=== PATIENT | female | born 1975 | race Caucasian/White ===

== ENCOUNTER 2017-02-03 11:52 | Emergency (ER) | payer OTHER ==
[~2017-02-03] VITALS: Ht 157.5 cm; Wt 55.8 kg
[~2017-02-03 11:52] MED LIST: GABA300C1 PO; HUM SUBQ; HYDR-4446 PO; LANTUS SUBQ; [UNRECOGNIZED DRUG - CODE] PO
[2017-02-03 11:56] VITALS: BP 103/63
[2017-02-03] MEDS ORDERED: ONDANSETRON 4 MG/2 ML VIAL IVP ONE (12:00)
[2017-02-03] MEDS ORDERED: NACL 0.9% 1,000 ML IV SCH ×3 (12:00→14:55)
[2017-02-03] MEDS ORDERED: FAMOTIDINE 20 MG/2 ML VIAL IVP ONE (12:00)
--- NOTE | 2017-02-03 12:00 | NUR ---
Patient ambulated to bed 4. RN evaluating patient at bedside.
--- NOTE | 2017-02-03 12:02 | NUR ---
41F BIB FAMILY C/O MID-STERNAL CHEST PAIN, ACHING, NON-RADIATING, 8/10 X 3 DAYS; PT STATES HAS SOB, RR EVEN/UNLABORED, BL LUNG SOUNDS CLEAR AT THIS TIME; PT O2 SAT 100 % ON ROOM AIR AT THIS TIME. PT A&OX4, SKIN IS WARM/DRY AT THIS TIME; PT C/O VOMITING, BUT DENIES DIARRHEA AT THIS TIME; STATES HAS HAD 4 EPISODES OF VOMITING TODAY; ABDOMEN SOFT, NON-TENDER, ACTIVE BOWEL SOUNDS X 4 QUADRANTS; PT RESTING IN BED W/ HOB ELEVATED AND IN LOWEST POSITION; POSITIONED FOR COMFORT; ER MD MADE AWARE OF STATUS. WILL CONTINUE TO MONITOR.
[2017-02-03] MEDS ORDERED: HYDROmorphone 1 MG/ML AMP IVP ONE (12:05)
--- NOTE | 2017-02-03 12:07 | NUR ---
XRAY AT BEDSIDE.
[2017-02-03 12:34] LABS: BASOPHILS # (AUTO) 0.1 K/uL (0.00-0.22); BASOPHILS % (AUTO) 0.7 % (0.0-2.0); EOSINOPHILS # (AUTO) 0.2 K/uL (0-0.4); EOSINOPHILS % (AUTO) 1.5 % (0.0-4.0); HEMATOCRIT 46.8 % (36-48); HEMOGLOBIN 15.1 g/dL (12.0-16.0); LYMPHOCYTES # (AUTO) 1.3 K/uL (2.5-16.5); LYMPHOCYTES % (AUTO) 9.7 % (20.5-51.1); MEAN CORPUSCULAR HEMOGLOBIN 30 pg (27-31); MEAN CORPUSCULAR HGB CONC 32 g/dL (33-37); MEAN CORPUSCULAR VOLUME 92 fL (80-94); MONOCYTES # (AUTO) 0.6 K/uL (0.8-1.0); MONOCYTES % (AUTO) 4.1 % (1.7-9.3); NEUTROPHILS # (AUTO) 11.5 K/uL (1.8-7.7); PLATELET COUNT (AUTO) 390 K/uL (140-450); RED BLOOD CELL COUNT(AUTO) 5.11 MIL/uL (4.20-5.40); RED CELL DISTRIBUTION WIDTH 14.2 % (11.6-13.7); WHITE BLOOD COUNT (AUTO) 13.7 K/uL (4.8-10.8)
[2017-02-03 12:47] LABS: APPEARANCE,URINE SL CLOUDY (CLEAR); BILIRUBIN,URINE 1+ (NEGATIVE); BLOOD, URINE 2+ (NEGATIVE); COLOR,URINE YELLOW (YELLOW); LEUKOCYTE ESTERASE ,URINE NEGATIVE (NEGATIVE); NITRITE, URINE NEGATIVE (NEGATIVE); PH,URINE 5.5 (5.0-9.0); PROTEIN,URINE 1+ (NEGATIVE); UGLUCOSE 3+ (NEGATIVE); UROBILINOGEN,URINE 0.2 EU/dL (0.2 - 1)
[2017-02-03 12:54] LABS: INR 1.1 (0.8-1.2); PARTIAL THROMBOPLASTIN TIME 27.7 secs (22-35.6); PROTHROMBIN TIME 10.4 secs (10.8-13.4)
[2017-02-03 12:54] LABS: AMPHETAMINE, URINE NEG. ng/ml (NEG <=1000); BARBITURATE, URINE NEG. ng/ml (NEG <=200); BENZODIAZEPINE, URINE NEG. ng/mL (NEG <=200); CANNABINOID, URINE NEG. ng/mL (NEG <=50); COCAINE, URINE NEG. ng/mL (NEG <=300); OPIATE, URINE NEG. ng/mL (NEG <=2000); PHENCYCLIDINE SCREEN,URINE NEG. ng/mL (NEG <=25)
[2017-02-03 12:55] LABS: ALBUMIN 3.7 g/dL (3.4-5.0); ANION GAP 31.2 (8-16); CALCIUM 8.9 mg/dL (8.5-10.1); CARBON DIOXIDE 9.3 mmol/L (21-32); CREATININE 1.4 mg/dL (0.6-1.3); POTASSIUM 4.5 mmol/L (3.5-5.1); TOTAL BILIRUBIN 0.5 mg/dL (0.0-1.0); TOTAL PROTEIN, SERUM 8.6 g/dL (6.4-8.2)
[2017-02-03 13:02] LABS: AMYLASE 63 U/L (25-115); LIPASE 394 U/L (73-393)
[2017-02-03] MEDS ORDERED: INSULIN HUMAN REGULAR 100 UNITS/ML 10 ML VIAL IVP ONE ×2 (13:10)
[2017-02-03] MEDS ORDERED: NACL 0.9% 3,000 ML IV ONE (13:10)
[2017-02-03 13:34] LABS: ICTOTEST NEGATIVE (NEGATIVE)
[2017-02-03 13:35] LABS: BACTERIA,URINE 0-2 (RARE) /HPF (None Seen); RBC,URINE 0-5 (RARE) /HPF (0-5); SQUAMOUS EPITHELIAL CELL,UR 0-3 (FEW) /LPF (0-3 (FEW)); WBC,URINE 0-5 (RARE) /HPF (0-5)
--- NOTE | 2017-02-03 13:55 | NUR ---
CHECKED PT'S BLOOD GLUCOSE; BLOOD GLUCOSE MACHINE READ "HI"; ER MD DR. HUNG NOTIFIED. WILL CONTINUE TO MONITOR.
[2017-02-03] MEDS ORDERED: LORazepam 2 MG/ML VIAL IVP PRN (14:30)
[2017-02-03] MEDS ORDERED: INSULIN HUMAN REGULAR 100 UNITS in NACL 0.9% 100 ML IV SCH (14:30)
[2017-02-03] MEDS ORDERED: BLOOD GLUCOSE MONITORING 1 DEV DEV FS SCH (14:30)
[2017-02-03] MEDS ORDERED: HYDROcodone/APAP 5/325 MG 1 TAB TAB PO PRN ×2 (14:30)
[2017-02-03] MEDS ORDERED: DEXTROSE 50% 50 ML SYR IVP PRN (14:30)
[2017-02-03] MEDS ORDERED: ONDANSETRON 4 MG/2 ML VIAL IVP PRN (14:30)
[2017-02-03] MEDS ORDERED: MORPHINE SULFATE 2 MG/ML SYR IVP PRN (14:30)
[2017-02-03] MEDS ORDERED: ACETAMINOPHEN 325 MG TAB PO PRN (14:30)
--- NOTE | 2017-02-03 14:39 | NUR ---
REPORT GIVEN TO ALBA LUCAS AT THIS TIME; ENDORSED 3L OF NS ORDERED BY ER MD DR. HUNG TO RN, PT'S 1L NS STILL INFUSING AT THIS TIME; PER ER MD DR. HUNG, DO NOT TRANSFER PT UNTIL HER BLOOD SUGAR IS BLEOW 500; SHAYY WILLIS NOTIFIED. WILL CONTINUE TO MONITOR.
[2017-02-03 14:47] LABS: POTASSIUM 3.7 mmol/L (3.5-5.1)
[2017-02-03 14:48] LABS: CALCIUM 8.7 mg/dL (8.5-10.1); CREATININE 1.3 mg/dL (0.6-1.3)
[2017-02-03 14:56] LABS: ANION GAP 32.4 (8-16); CARBON DIOXIDE 8.3 mmol/L (21-32)
--- NOTE | 2017-02-03 14:58 | NUR ---
PT BLOOD SUGAR 596; ER MD DR. HUNG NOTIFIED; PER ER MD DR. HUNG, OK TO TRANSFER PT TO ICU AT THIS TIME; CALLED ALBA LUCAS AT ICU; INFORMED PT TO BE TAKEN TO ICU.
[2017-02-03] MEDS ORDERED: HYDROmorphone 1 MG/ML AMP IVP PRN (15:05)
--- NOTE | 2017-02-03 15:28 | NUR ---
Dr. Ribeiro evaluating patient at bedside.
--- NOTE | 2017-02-03 15:59 | NUR ---
DR. SORIANO EVALUATED PT, AND WOULD LIKE PT IN ICU; CALLED ALBA LUCAS; PT TO BE TAKEN TO ICU AT THIS TIME.
[2017-02-03 16:15] LABS: BLOOD GAS HCO3 6.3 mmol/L; BLOOD GAS PCO2 16.2 mmHg (20-50); BLOOD GAS PH 7.211 (7.35-7.45); BLOOD GAS PO2 104.5 mmHg
[2017-02-03 16:16] LABS: BLOOD GAS BASE EXCESS -18.8 mmol/L (-2.0-2.0); BLOOD GAS O2 SAT% 98.1 % (92.0-98.5)
--- NOTE | 2017-02-03 16:26 | NUR ---
PT UPSET, CRYING, STATED WANTS TO LEAVE; ER MD DR. HUNG/ RN DELON EXPLAINED RISKS/BENEFITS OF PT LEAVING; PT STATES " I'M GOING TO AMA, YOU GUYS CAN'T STOP ME OR I'LL PRESS CHARGES".
--- NOTE | 2017-02-03 16:26 | NUR ---
MADE AWARE OF CRITICAL ABG RESULTS.
--- NOTE | 2017-02-03 16:28 | NUR ---
IV removed, catheter intact and site benign. Applied folded 4x4 gauze and tape to stop bleeding. PT TOLERATED PROCEDURE WELL.
[2017-02-03 16:29] VITALS: BP 123/80
--- NOTE | 2017-02-03 16:29 | NUR ---
Patient does not wish to proceed with medical care recommended by DR. HUNG. Patient given information related to possible complications, up to and including , which could occur as a result of leaving hospital at this time. Patient verbalizes understanding of risks involved leaving against medical advice. Patient has signed AMA form.
--- NOTE | 2017-02-03 16:32 | NUR ---
Notified Dr. Ribeiro the patient signed AMA.
--- NOTE | 2017-02-03 16:32 | NUR ---
ER PHYSICIAN MADE AWARE OF PT CRITICAL ABG RESULTS. ABG RESULTS ALSO GIVEN OVER PHONE TO BY JAMES Gardner
[2017-02-03] MEDS ORDERED: GABAPENTIN 300 MG CAP PO SCH (17:00)
[2017-02-04] MEDS ORDERED: ASPIRIN 81 MG TAB.CHEW PO SCH (09:00)
== END 2017-02-03 16:29 | disposition left against medical advice (07) ==
LOC: MED 11:52 → MIC 13:46 → UNDOADMIN 13:46 → MED 16:29
DX: E13.10 Other specified diabetes mellitus with ketoacidosis without coma (principal); R07.89 Other chest pain; M54.5 Low back pain; F17.200 Nicotine dependence, unspecified, uncomplicated; Z79.4 Long term (current) use of insulin; Z86.19 Personal history of other infectious and parasitic diseases; Z88.0 Allergy status to penicillin; Z88.5 Allergy status to narcotic agent; Z88.6 Allergy status to analgesic agent; Z91.040 Latex allergy status; Z71.6 Tobacco abuse counseling
CPT/HCPCS: 36415; 36600; 71010; 80048; 80053; 80305; 81001; 81025; 82150; 82553; 82803; 82948; 83690; 83880; 84484; 85025; 85379; 85610; 85730; 93005; 96361; 96374; 96375; 96376; 99285; J1170; J1815; J2405; J3490; J7030; Q0092

== ENCOUNTER 2017-02-03 18:22 | Inpatient (IN) | payer OTHER ==
[~2017-02-03] VITALS: Ht 157.5 cm; Wt 54.4 kg
[~2017-02-03 18:22] MED LIST changes: +AMBIEN10 M1 PO; +AMBIEN10 MG PO; +ASPIRIN81 M4 PO; +CELEXA10 MG PO; -GABA300C1 PO; +GLUCOPHAGE; -HUM SUBQ; +HUMALOG100 UNITS/ SUBQ; +HUMULIN R100 U/M1 SUBQ; -HYDR-4446 PO; +HYDROMORPHONE PO; +LANTUS INS100 UNITS/ SUBQ; +LANTUS INSULIN; +LANTUS SOLOS100 U/ML SUBQ; -LANTUS SUBQ; +LANTUS100 U/ML SUBQ; +LASIX40 M1 PO; +LOPRESSOR25 MG PO; +NEURONTIN300 M1 PO; +NEURONTIN600 MG PO; +NORCO 10/325 MG1 TAB PO; +NORCO 5/325 MG1 TAB PO; +RESTORIL7.5 M1 PO; +SOMA350 M1 PO; +VICODIN; -[UNRECOGNIZED DRUG - CODE] PO; +[UNRECOGNIZED DRUG - REMARK]
--- NOTE | 2017-02-03 18:56 | NUR ---
CALLED PT. FOR TRIAGE, NO ANSWER
[2017-02-03 19:02] VITALS: BP 92/74
--- NOTE | 2017-02-03 19:18 | NUR ---
Patient ambulated to bed 5. RN evaluating patient at bedside.
--- NOTE | 2017-02-03 19:27 | NUR ---
Dr. Manning evaluating patient at bedside.
--- NOTE | 2017-02-03 19:45 | NUR ---
41Y/F PATIENT PRESENTS TO ED WITH C/O AKA . PT. WAS ADMITTED IN ICU EARLIER THEN LEFT AMA, BS. HIGH. DENIES N/V/D; SKIN IS PINK/WARM/DRY; AAOX4 WITH EVEN AND STEADY GAIT; LUNGS CLEAR BL; HR EVEN AND REGULAR; PT DENIES ANY FEVER, CP, SOB, OR COUGH AT THIS TIME; C/O BACK PAIN PATIENT STATES PAIN OF 10/10 AT THIS TIME; VSS; PATIENT POSITIONED FOR COMFORT; HOB ELEVATED; BEDRAILS UP X2; BED DOWN. ER MD MADE AWARE OF PT STATUS.
[2017-02-03] MEDS ORDERED: NACL 0.9% 500 ML IV ONE ×2 (19:46)
--- NOTE | 2017-02-03 20:18 | NUR ---
RT AT BEDSIDE FOR ABG
[2017-02-03] MEDS ORDERED: ONDANSETRON 4 MG/2 ML VIAL IVP ONE (20:40)
[2017-02-03] MEDS ORDERED: HYDROmorphone PFS 2 MG/ML SYR IVP ONE (20:40)
[2017-02-03] MEDS ORDERED: INSULIN HUMAN REGULAR 100 UNITS/ML 10 ML VIAL IVP ONE (21:10)
--- NOTE | 2017-02-03 21:26 | NUR ---
HR 133 BPM, DR. MOORE MADE AWARE
--- NOTE | 2017-02-03 22:07 | NUR ---
BS 515, DR. MOORE MADE AWARE
[2017-02-03] MEDS ORDERED: NACL 0.9% 1,000 ML IV SCH (22:20)
[2017-02-03] MEDS ORDERED: ACETAMINOPHEN 325 MG TAB PO PRN (22:40)
--- NOTE | 2017-02-03 22:54 | NUR ---
Patient will be admitted to care of DR. BACK. Admited to ICU. Will go to room 2. Belongings list completed. Report to ALBA RAMOS.
[2017-02-03 23:00] VITALS: BP 128/86
--- NOTE | 2017-02-03 23:00 | NUR ---
RECEIVED PATIENT TRANSFERRED FROM ER, PT IS AAOX4, AGITATED, ABLE TO FOLLOW COMMANDS AND MAKE NEEDS KNOWN. C/O SEVERE LOWER BACK PAIN, 10/10, MEDICATED AND EDUCATED. DENIES SOB OR DISTRESS, BREATHING EVEN AND UNLABORED, CLEAR LUNG SOUNDS, ON RA. ST ON COAGULATION OPERATOR, DENIES CHEST PAIN, SOFT ABD, ACTIVE BOWEL SOUNDS, IV TO LEFT AC 22GA, PATENT, SL. AFEBRILE, SKIN IS WARM AND DRY TO TOUCH, NO OPEN WOUND PRESENT. ABLE TO MOVE ALL EXTREMITIES, AMBULATORY WITH STEADY GAIT. ACCU CHECK WITH 476MG/DL. PLACED PATIENT IN COMFORT POSITION, SAFETY MEASURE IN USE, BED IN LOW POSITION, CALL LIGHT WITHIN REACH, WILL CONTINUE TO MONITOR.
[2017-02-03] MEDS: HYDROmorphone 1 MG/ML AMP IVP PRN (23:31)
[2017-02-03] MEDS: NACL 0.9% IV SCH (23:59)
[2017-02-03] MEDS: INSULIN HUMAN REGULAR IV SCH (23:59)
--- NOTE | 2017-02-04 | NUR ---
PT REFUSED TO CHECK BP DUE TO C/O THE BP CALF IS HURTING HER ARM. AND START GETTING VERY AGITATED, VERBALLY ABUSIVE TO NURSES. LEGAL ASSISTANT MADE AWARE.
--- NOTE | 2017-02-04 00:20 | NUR ---
PT IS AGITATED, VERBALLY ABUSIVE, REQUESTED TO REMOVE THE IV SITE ON LEFT ARM, EXPLAINED TO PT ABOUT IMPORTANT OF CURRENTLY RUNNING INSULIN DRIP, PT STATED, " I DON'T CARE, JUST REMOVE THE IV SITE". THEN PT PULLED OUT THE IV ON LEFT ARM BY HERSELF. SMALL AMOUNT OF BLEEDING NOTED. THEN PT REFUSED TO PUT NEW IV SITE IN, STATED, " IM GOING TO CALL MY GIRLFRIEND, REPORT YOUR ABUSE ME." CALLED SECURITY, PT STATED, " JUST LEAVE ME ALONE." WILL REPORT TO MD ABOUT PT'S CONDITION.
[2017-02-04] MEDS ORDERED: DEXTROSE 50% 50 ML SYR IVP PRN ×2 (01:00→13:10)
--- NOTE | 2017-02-04 01:00 | NUR ---
DR. LIRA PAGED TO REPORTED PATIENT'S CURRENTLY SITUATION, DR. LIRA ORDERED ATIVAN AND SOFT RESTRAIN AT THIS TIME, WILL CARRY OUT.
--- NOTE | 2017-02-04 02:00 | NUR ---
ACCU CHECK DONE WITH RESULT 456MG/DL, EXPLAINED AND EDUCATED PT ON INSULIN DRIP INDICATIONS, PT AGREED TO INSERTED A NEW IV SITE. INSERTED IV SITE TO RIGHT HAND 24GA WITH GOOD BLOOD RETURN, CONTINUE INSULIN DRIP AT THIS TIME.
[2017-02-04] MEDS: BLOOD GLUCOSE MONITORING 1 DEV DEV FS SCH ×11 (02:11→11:00)
[2017-02-04] MEDS: LORazepam 2 MG/ML VIAL IVP PRN ×2 (03:09→12:11)
[2017-02-04 04:00] VITALS: BP 104/75
--- NOTE | 2017-02-04 04:00 | NUR ---
PT IS ASLEEP IN BED COMFORTABLY, NO CHANGE OF CONDITION AT THIS TIME. VSS.
--- NOTE | 2017-02-04 06:00 | NUR ---
NO CHANGE OF CONDITION AT THIS TIME, VSS.
--- NOTE | 2017-02-04 07:15 | NUR ---
ENDORSED PLAN OF CARE TO ALBA SEVILLA FOR CONTINUE OF CARE. PT IS IN STABLE CONDITION, INSULIN DRIP ON 2 UNITS PER HOUR, VSS.
--- NOTE | 2017-02-04 07:30 | NUR ---
RECEIVE REPORT FROM NIGHT NURSE PT SLEEPING AT THE TIME ON ROOM AIR, SKIN DRY AND WARM TO TOUCH IV FLUID HAS # 22 ON RT FOREARM INFUSSING NS AND INSULIN IV DRIP. SKIN INTACT,
--- NOTE | 2017-02-04 08:00 | NUR ---
AWAKE BY NAME CALLED , REFUSED TO HAVE BP CLUB ON AGITATE EASILY ONLY DRINK JUICE FOR BREAKFAST.
--- NOTE | 2017-02-04 08:00 | NUR ---
BLOOD GLUCOSE 207 CONTINUE INSULIN IV DRIP AT 2UNIT /HR . PT. AWAKE BUT DROWSEY.
--- NOTE | 2017-02-04 09:00 | NUR ---
BL. GLUCOSE 174 INSULIN IV DRIP DOWN TO 1UNIT/HR.
[2017-02-04] MEDS: NACL 0.9% IV SCH (09:44)
[2017-02-04] MEDS: INSULIN HUMAN REGULAR IV SCH (09:44)
--- NOTE | 2017-02-04 10:00 | NUR ---
BLOOD GLUCOSE 167 INSULIN IV DRIP AT 1UNIT /HR.
[2017-02-04] MEDS: HYDROmorphone 1 MG/ML AMP IVP PRN (10:09)
--- NOTE | 2017-02-04 10:09 | NUR ---
C/O PAIN ON HER FINGER AND BACK MEDICATION GIVEN ORDERED.
--- NOTE | 2017-02-04 11:00 | NUR ---
BLOOD GLUCOSE 187 INSULIN DRIP [id number]/HR.
--- NOTE | 2017-02-04 12:11 | NUR ---
PT BECOME AGITATED RESTLESS AFTER EAT LUNCH, TRY TO PULL OUT IV AND TRY TO GET OUTSIDE TO SMOKE. ATIVAN WAS GIVEN ORDERED..
--- NOTE | 2017-02-04 12:45 | NUR ---
PT, BECOME AGITATED REFUSED TO KEEP B/P ANSD [employer]P [employer] FOOD & COOKING ON
--- NOTE | 2017-02-04 13:00 | NUR ---
SEEN BY DR. BACK ORDER RECEIVED D/C HEPARIN IV DRIP D/C MAIN IV. DOWN GRADE TO MED SURG..
[2017-02-04] MEDS ORDERED: INSULIN DETEMIR 100 UNITS/ML 10 ML VIAL SUBQ ONE (13:07)
[2017-02-04] MEDS ORDERED: INSULIN LISPRO SLIDING SCALE 100 UNITS/ML VIAL SUBQ PRN (13:10)
[2017-02-04] MEDS ORDERED: HYDROcodone/APAP 5/325 MG 1 TAB TAB PO PRN (13:10)
--- NOTE | 2017-02-04 15:25 | NUR ---
PT. BECOME MORE AGITATED VERBAL ABUSIVE DEMAND TO GO OUT, TO PULL OUT HER IV AND FINISHING MACHINE OPERATOR BP CLUB WANTED TO SIGN AMA. THE HOUSE SUPERVISE WAS NOTIFIED , HE CAME AND TALK TO PT ,SHE REMAIN AGRESSIVE VERBAL ABUSIVE AND PHYSICAL ABUSIVE WITH WITH SECURITY , THE SUPERVISE GAGANDEEP CALLED MELONY PT FRIEND AND HAVE HER TALK TO THE PATIENT THAT DID NOT HELP SHE STILL WANT TO GET OUT . CHRIST CALLED [facility] PT. SISTER AND ALSO HAVE HER TALK TO PT AGAIN AND AGAIN PT. STILL WANT TO GET OUT AGAINSHE BECOME MORE VERBAL ABUSIVE,
--- NOTE | 2017-02-04 15:35 | NUR ---
PT SIGN ELLEN OUR SUPERVISE TALK TO [facility] THE PT, SISTER SHE SAID TO GIVE HER THE BUS PASS AND TELL PT. TO GO TO HER HOUSE,
--- NOTE | 2017-02-04 15:50 | NUR ---
PT. RECEIVED THE BUS PASS AND WALK TO BUS STOP WITH SECURITY DEVANTE.
--- NOTE | 2017-02-04 15:50 | NUR ---
THE CHARGE NURSE AWARE , INCIDEN REPORT WAS MADE.
[2017-02-04] MEDS ORDERED: BLOOD GLUCOSE MONITORING 1 DEV DEV FS SCH (16:30)
[2017-02-04] MEDS ORDERED: GABAPENTIN 300 MG CAP PO SCH (17:00)
[2017-02-05] MEDS ORDERED: INSULIN DETEMIR 100 UNITS/ML 10 ML VIAL SUBQ SCH (09:00)
--- NOTE | 2017-02-05 14:45 | NUR ---
CM NOTE RETRO REVIEW FAXED TO [facility] / FAX# [phone]
== END 2017-02-04 15:50 | disposition left against medical advice (07) | DRG 420 ==
LOC: MED 18:22 → MIC 21:32
PROVIDERS: ADMIT Internal Medicine Pulmonary Disease; ATTEND Internal Medicine Pulmonary Disease
DX: E13.10 Other specified diabetes mellitus with ketoacidosis without coma (principal); M54.9 Dorsalgia, unspecified; R06.02 Shortness of breath; Z53.21 Procedure and treatment not carried out due to patient leaving prior to being seen by health care provider; E13.40 Other specified diabetes mellitus with diabetic neuropathy, unspecified; Z88.0 Allergy status to penicillin; Z91.14 Patient's other noncompliance with medication regimen; Z88.6 Allergy status to analgesic agent; Z91.041 Radiographic dye allergy status; Z91.040 Latex allergy status; Z79.4 Long term (current) use of insulin; Z79.899 Other long term (current) drug therapy

== ENCOUNTER 2017-05-31 17:53 | Emergency (ER) | payer OTHER ==
[~2017-05-31] VITALS: Ht 157.5 cm; Wt 50.8 kg
[~2017-05-31 17:53] MED LIST changes: -AMBIEN10 M1 PO; -AMBIEN10 MG PO; -ASPIRIN81 M4 PO; -CELEXA10 MG PO; +GABA300C1 PO; -GLUCOPHAGE; +HUM SUBQ; -HUMALOG100 UNITS/ SUBQ; -HUMULIN R100 U/M1 SUBQ; +HYDR-4446 PO; -HYDROMORPHONE PO; -LANTUS INS100 UNITS/ SUBQ; -LANTUS INSULIN; -LANTUS SOLOS100 U/ML SUBQ; +LANTUS SUBQ; -LANTUS100 U/ML SUBQ; -LASIX40 M1 PO; -LOPRESSOR25 MG PO; -NEURONTIN300 M1 PO; -NEURONTIN600 MG PO; -NORCO 10/325 MG1 TAB PO; -NORCO 5/325 MG1 TAB PO; -RESTORIL7.5 M1 PO; -SOMA350 M1 PO; -VICODIN; -[UNRECOGNIZED DRUG - REMARK]
[2017-05-31 17:56] VITALS: BP 108/69
--- NOTE | 2017-05-31 18:30 | NUR ---
PATIENT PRESENTS TO ED WITH anterior left sided chest wall pain x yesterday . PT STATES . DENIES N/V/D; SKIN IS PINK/WARM/DRY, no discoloration noted to chest wall, no flail palpated; AAOX4 WITH EVEN AND STEADY GAIT; LUNGS CLEAR BL; HR EVEN AND REGULAR; PT adds feels sob due to pain being so bad; PATIENT STATES PAIN OF 8/10 AT THIS TIME; VSS; PATIENT POSITIONED FOR COMFORT; HOB ELEVATED; BEDRAILS UP X2; BED DOWN. ER MD MADE AWARE OF PT STATUS.
--- NOTE | 2017-05-31 18:45 | NUR ---
md notified pt in pain, splinting left chest wall with hand---grimace, repeatedly shifting in guerney---v/s/s at this time.
--- NOTE | 2017-05-31 19:30 | NUR ---
41/F c/o left sided chest pain s/p trip and fall yesterday. Pt reports "I got dizzy and fell." Pt c/o pressure, intermittent pain, 10/10 radiating to back. Pt states "I feel like I can't breathe. I feel like I'm going to have a panic attack." Sinus Tachycardiac 109 on monitoring manager. AOX4, clear speech. Denies fever or chills. Denies N/V/D. Pt states "I took [place] for pain but I only have a few left." VSS. No distress noted.
--- NOTE | 2017-05-31 19:38 | NUR ---
Patient being evaluated by Dr. Fernando at bedside.
[2017-05-31] MEDS ORDERED: oxyCODONE/APAP 5/325 MG 1 TAB TAB PO ONE (19:50)
--- NOTE | 2017-05-31 20:09 | NUR ---
Patient discharged with v/s stable. Written and verbal after care instructions given and explained. Patient alert, oriented and verbalized understanding of instructions. Ambulatory with steady gait. All questions addressed prior to discharge. ID band removed. Patient advised to follow up with PMD. Rx of [place] 10mg-325mg given. Patient educated on indication of medication including possible reaction and side effects. Opportunity to ask questions provided and answered.
[2017-05-31 20:10] VITALS: BP 106/62
--- NOTE | 2017-05-31 20:10 | NUR ---
Chart checked and completed. The patient's care was reviewed and supervised by Pamela Sullivan RN.
== END 2017-05-31 20:10 | disposition home or self-care (01) ==
LOC: MED 17:58
DX: S20.212A Contusion of left front wall of thorax, initial encounter (principal); E11.40 Type 2 diabetes mellitus with diabetic neuropathy, unspecified; M79.7 Fibromyalgia; M54.30 Sciatica, unspecified side; Z88.0 Allergy status to penicillin; Z88.5 Allergy status to narcotic agent; Z88.1 Allergy status to other antibiotic agents; Z91.040 Latex allergy status; X58.XXXA Exposure to other specified factors, initial encounter; Y93.89 Activity, other specified; Y92.89 Other specified places as the place of occurrence of the external cause; Y99.8 Other external cause status
CPT/HCPCS: 71020; 81002; 81025; 99284

== ENCOUNTER 2017-08-24 19:37 | Emergency (ER) | payer OTHER ==
[~2017-08-24] VITALS: Ht 157.5 cm; Wt 43.7 kg
[~2017-08-24 19:37] MED LIST changes: +ACET-8386 PO; -HYDR-4446 PO
[2017-08-24 19:44] VITALS: BP 83/47
--- NOTE | 2017-08-24 19:44 | NUR ---
ACCUCHECK: TOO HIGH TO READ, ER MD URBANO MADE AWARE
[2017-08-24] MEDS ORDERED: ALPR0.252 PO (19:48)
[2017-08-24] MEDS ORDERED: NACL 0.9% 1,000 ML IV ONE (19:55)
--- NOTE | 2017-08-24 19:57 | NUR ---
PT TAKEN TO BED 8
--- NOTE | 2017-08-24 20:00 | NUR ---
PATIENT IS A 41 Y/O FEMALE WHO PRESENTS TO THE ED S/P FALL. PT STATES, "I FELL INTO A POTHOLE AND FELL ON MY RIGHT SIDE." PT REPORTS 7/10 SHARP PAIN THAT DOES NOT RADIATE. NO OPEN WOUNDS NOTED, SKIN IS COOL/DRY. PT DENIES SOB, CP, N/V/D. PT AAOX4, RR EVEN/UNLABORED. PT REPOSITIONED FOR COMFORT, BED IN LOWEST POSITION. ER MD DR. URBANO NOTIFIED. WILL CONTINUE TO MONITOR.
[2017-08-24 20:23] LABS: BASOPHILS # (AUTO) 0.1 K/uL (0.00-0.22); BASOPHILS % (AUTO) 1.4 % (0.0-2.0); EOSINOPHILS # (AUTO) 0.1 K/uL (0-0.4); EOSINOPHILS % (AUTO) 0.9 % (0.0-4.0); HEMATOCRIT 42.7 % (36-48); HEMOGLOBIN 13.8 g/dL (12.0-16.0); LYMPHOCYTES # (AUTO) 2.8 K/uL (2.5-16.5); LYMPHOCYTES % (AUTO) 28.9 % (20.5-51.1); MEAN CORPUSCULAR HEMOGLOBIN 29 pg (27-31); MEAN CORPUSCULAR HGB CONC 32 g/dL (33-37); MEAN CORPUSCULAR VOLUME 91 fL (80-94); MONOCYTES # (AUTO) 0.3 K/uL (0.8-1.0); MONOCYTES % (AUTO) 2.9 % (1.7-9.3); NEUTROPHILS # (AUTO) 6.5 K/uL (1.8-7.7); NEUTROPHILS % (AUTO) 65.9 % (42.2-75.2); PLATELET COUNT (AUTO) 492 K/uL (140-450); RED BLOOD CELL COUNT(AUTO) 4.71 MIL/uL (4.20-5.40); RED CELL DISTRIBUTION WIDTH 13.8 % (11.6-13.7); WHITE BLOOD COUNT (AUTO) 9.8 K/uL (4.8-10.8)
--- NOTE | 2017-08-24 20:23 | NUR ---
X-Ray at bedside.
[2017-08-24 20:44] LABS: ALBUMIN 3.7 g/dL (3.4-5.0); ANION GAP 13.8 (8-16); CARBON DIOXIDE 25.7 mmol/L (21-32); CREATININE 1.2 mg/dL (0.6-1.3); POTASSIUM 4.5 mmol/L (3.5-5.1); TOTAL BILIRUBIN 0.4 mg/dL (0.0-1.0)
--- NOTE | 2017-08-24 21:20 | NUR ---
Dr. Quispe evaluating patient at bedside.
[2017-08-24] MEDS ORDERED: INSULIN HUMAN REGULAR 100 UNITS/ML 10 ML VIAL IVP ONE (21:25)
[2017-08-24] MEDS ORDERED: MORPHINE SULFATE 4 MG/ML SYR IVP ONE (21:25)
[2017-08-24 22:35] VITALS: BP 87/52
--- NOTE | 2017-08-24 22:35 | NUR ---
Patient discharged with v/s stable. Written and verbal after care instructions given and explained. Patient alert, oriented and verbalized understanding of instructions. Ambulatory with steady gait. All questions addressed prior to discharge. ID band removed. Patient advised to follow up with PMD. Rx of AZITHROMYCIN 250 MG/NORCO 5MG-325MG given. Patient educated on indication of medication including possible reaction and side effects. Opportunity to ask questions provided and answered.
== END 2017-08-24 22:35 | disposition home or self-care (01) ==
LOC: MED 19:37
DX: S20.20XA Contusion of thorax, unspecified, initial encounter (principal); M25.551 Pain in right hip; M25.561 Pain in right knee; J18.9 Pneumonia, unspecified organism; E11.65 Type 2 diabetes mellitus with hyperglycemia; F17.210 Nicotine dependence, cigarettes, uncomplicated; Z88.0 Allergy status to penicillin; Z88.5 Allergy status to narcotic agent; Z88.8 Allergy status to other drugs, medicaments and biological substances; Z79.899 Other long term (current) drug therapy; X58.XXXA Exposure to other specified factors, initial encounter; Y93.89 Activity, other specified; Y92.89 Other specified places as the place of occurrence of the external cause; Y99.8 Other external cause status
CPT/HCPCS: 36415; 71010; 73502; 73562; 80053; 81002; 81025; 82948; 85025; 96361; 96374; 96375; 99285; J1815; J2270; J7030; Q0092

== ENCOUNTER 2017-11-30 20:19 | Emergency (ER) | payer OTHER ==
[~2017-11-30] VITALS: Ht 157.5 cm; Wt 42.0 kg
[~2017-11-30 20:19] MED LIST changes: -ACET-8386 PO; +ALPR0.252 PO
[2017-11-30 20:25] VITALS: BP 106/70
--- NOTE | 2017-11-30 23:12 | NUR ---
PATIENT AMBULATED TO ER BED 3.
--- NOTE | 2017-11-30 23:30 | NUR ---
PT AMB W/O ASST TO BRP-UA DONE, HCG-NEG
[2017-12-01] MEDS ORDERED: oxyCODONE/APAP 5/325 MG 1 TAB TAB PO ONE
--- NOTE | 2017-12-01 00:29 | NUR ---
PT BIB C/O PAIN ON TAILBONE PAIN, S/P FALL 2 DAYS-NO LOC/KO, DENIES N/V/D; SKIN IS INTACT, PINK/WARM/DRY; AAOX4, PERRL, WITH EVEN AND STEADY GAIT; LUNGS CLEAR BL, BREATHING UNLABORED; HR EVEN AND REGULAR, BL PERIPHERAL PULSES PRESENT; BS ACTIVE X4, NO TENDERNESS TO PALPATION. PT DENIES ANY FEVER, CP, SOB, OR COUGH AT THIS TIME; PT STATES 4/10 PAIN AT THIS TIME; VSS; PATIENT POSITIONED FOR COMFORT; HOB ELEVATED; BEDRAILS UP X2; BED DOWN.
--- NOTE | 2017-12-01 00:56 | NUR ---
PT TAKEN TO RADIOLOGY
[2017-12-01 01:36] VITALS: BP 106/70
--- NOTE | 2017-12-01 01:38 | NUR ---
Patient discharged with v/s stable. Written and verbal after care instructions given and explained. Patient alert, oriented and verbalized understanding of instructions. Ambulatory with steady gait. All questions addressed prior to discharge. ID band removed. Patient advised to follow up with PMD. Rx of [place] given. Patient educated on indication of medication including possible reaction and side effects. Opportunity to ask questions provided and answered.
== END 2017-12-01 01:38 | disposition home or self-care (01) ==
LOC: MED 20:19
DX: M54.5 Low back pain (principal); E11.9 Type 2 diabetes mellitus without complications; Z79.4 Long term (current) use of insulin; Z79.899 Other long term (current) drug therapy; Z88.0 Allergy status to penicillin; Z88.5 Allergy status to narcotic agent; Z88.8 Allergy status to other drugs, medicaments and biological substances; Z91.040 Latex allergy status
CPT/HCPCS: 72220; 81002; 81025; 99284

== ENCOUNTER 2017-12-21 18:18 | Emergency (ER) | payer OTHER ==
[~2017-12-21] VITALS: Ht 157.5 cm; Wt 43.1 kg
[2017-12-21 18:38] VITALS: BP 107/63
--- NOTE | 2017-12-21 18:46 | NUR ---
Pt taken to bed 11.
--- NOTE | 2017-12-21 19:01 | NUR ---
42/F presents to ED with complaints of lower back, abd pain, chest pain x6 days and reports having hyperglycemia today. Pt states "I checked my sugar earlier today and it read high." Pt c/o 9/10 pain, and diarrhea for the past x10 days. Pt denies N/V. AOX4, ambulates with steady gait. Pt in a gown, placed on cardiac monitoring, HR 115 sinus tachycardia. All needs addressed at this time. No distress noted.
--- NOTE | 2017-12-21 19:14 | NUR ---
Pt report given to Iqra WILLIS. Transfer of care at this time.
--- NOTE | 2017-12-21 19:20 | NUR ---
Pt resting in bed, slightly tachy, c/o abd pain, no other s/s of distress noted. ER MD MADE AWARE.
--- NOTE | 2017-12-21 19:59 | NUR ---
SAMANTHA MILLER AT BEDSIDE EVALUATING PT.
[2017-12-21] MEDS ORDERED: NACL 0.9% 1,000 ML IV ONE (20:05)
[2017-12-21] MEDS ORDERED: MORPHINE SULFATE 4 MG/ML SYR IVP ONE (20:05)
[2017-12-21 20:23] LABS: APPEARANCE,URINE CLEAR (CLEAR); BILIRUBIN,URINE NEGATIVE (NEGATIVE); BLOOD, URINE NEGATIVE (NEGATIVE); COLOR,URINE YELLOW (YELLOW); LEUKOCYTE ESTERASE ,URINE NEGATIVE (NEGATIVE); NITRITE, URINE NEGATIVE (NEGATIVE); UGLUCOSE 3+ (NEGATIVE)
[2017-12-21 20:31] LABS: RBC,URINE 0-5 (RARE) /HPF (0-5); WBC,URINE 0-5 (RARE) /HPF (0-5)
[2017-12-21 20:32] LABS: YEAST,URINE Few /HPF (None Seen)
[2017-12-21 20:38] LABS: ACETONE, SERUM NEGATIVE (NEGATIVE)
[2017-12-21 20:39] LABS: BASOPHILS # (AUTO) 0.1 K/uL (0.00-0.22); BASOPHILS % (AUTO) 1.6 % (0.0-2.0); EOSINOPHILS # (AUTO) 0.1 K/uL (0-0.4); EOSINOPHILS % (AUTO) 1.2 % (0.0-4.0); HEMATOCRIT 33.6 % (36-48); HEMOGLOBIN 10.8 g/dL (12.0-16.0); LYMPHOCYTES % (AUTO) 35.8 % (20.5-51.1); MEAN CORPUSCULAR HEMOGLOBIN 29 pg (27-31); MEAN CORPUSCULAR HGB CONC 32 g/dL (33-37); MEAN CORPUSCULAR VOLUME 90 fL (80-94); MONOCYTES # (AUTO) 0.3 K/uL (0.8-1.0); MONOCYTES % (AUTO) 4.1 % (1.7-9.3); NEUTROPHILS # (AUTO) 4.9 K/uL (1.8-7.7); NEUTROPHILS % (AUTO) 57.3 % (42.2-75.2); PLATELET COUNT (AUTO) 456 K/uL (140-450); RED BLOOD CELL COUNT(AUTO) 3.74 MIL/uL (4.20-5.40); RED CELL DISTRIBUTION WIDTH 15.8 % (11.6-13.7); WHITE BLOOD COUNT (AUTO) 8.4 K/uL (4.8-10.8)
[2017-12-21 20:47] LABS: ALBUMIN 2.9 g/dL (3.4-5.0); ANION GAP 11.8 (8-16); ASPARTATE AMINOTRANSFERASE 17 U/L (15-37); CARBON DIOXIDE 28.7 mmol/L (21-32); CHLORIDE 99 mmol/L (98-107); CREATININE 0.7 mg/dL (0.6-1.3); GFR ARICAN-AMERICAN 117 mL/min (>90); LIPASE 54 U/L (73-393); POTASSIUM 4.5 mmol/L (3.5-5.1); SODIUM SERUM 135 mmol/L (136-145); TOTAL BILIRUBIN 0.3 mg/dL (0.0-1.0); UREA NITROGEN, BLOOD 5 mg/dL (7-18)
[2017-12-21 20:49] LABS: GLUCOSE 576 mg/dL (74-106)
[2017-12-21] MEDS ORDERED: INSULIN REGULAR, HUMAN 100 UNIT/ML VIAL SUBQ ONE (21:05)
--- NOTE | 2017-12-21 21:05 | NUR ---
PER SAMANTHA MILLER PT OK TO HAVE JELLOW SUGAR FREE.
[2017-12-21 22:45] VITALS: BP 112/73
== END 2017-12-21 22:45 | disposition home or self-care (01) ==
LOC: MED 18:18
DX: R10.13 Epigastric pain (principal); E11.9 Type 2 diabetes mellitus without complications; Z79.899 Other long term (current) drug therapy; Z79.84 Long term (current) use of oral hypoglycemic drugs; Z88.0 Allergy status to penicillin; Z88.5 Allergy status to narcotic agent; Z88.8 Allergy status to other drugs, medicaments and biological substances; Z91.040 Latex allergy status
CPT/HCPCS: 36415; 80053; 81001; 81025; 82009; 82948; 83690; 85025; 87086; 96361; 96374; 99285; J1815; J2270; J7030

== ENCOUNTER 2017-12-23 20:45 | Inpatient (IN) | payer OTHER ==
[~2017-12-23] VITALS: Ht 157.5 cm; Wt 45.0 kg
[2017-12-23 20:57] VITALS: BP 123/80
[2017-12-23] MEDS ORDERED: HYDROcodone/APAP 5/325 MG 1 TAB TAB PO ONE (22:35)
[2017-12-23] MEDS ORDERED: DICYCLOMINE HCL LIQUID 20 MG, ALUMINUM HYD/MAG/SIMETHICONE 30 ML, LIDOCAINE VISCOUS 2% ... PO ONE ×3 (22:35)
[2017-12-23 22:57] LABS: BARBITURATE, URINE NEG. ng/ml (NEG <=200); BENZODIAZEPINE, URINE NEG. ng/mL (NEG <=200); CANNABINOID, URINE NEG. ng/mL (NEG <=50); COCAINE, URINE NEG. ng/mL (NEG <=300); OPIATE, URINE NEG. ng/mL (NEG <=2000); PHENCYCLIDINE SCREEN,URINE NEG. ng/mL (NEG <=25)
[2017-12-23] MEDS ORDERED: NACL 0.9% 2,000 ML IV ONE (23:15)
[2017-12-24 00:34] LABS: EOSINOPHILS # (AUTO) 0.1 K/uL (0-0.4); MONOCYTES # (AUTO) 0.4 K/uL (0.8-1.0); NEUTROPHILS # (AUTO) 4.8 K/uL (1.8-7.7); WHITE BLOOD COUNT (AUTO) 7.7 K/uL (4.8-10.8)
[2017-12-24 00:40] LABS: ALBUMIN 2.5 g/dL (3.4-5.0); ANION GAP 9.4 (8-16); BASOPHILS # (AUTO) 0.2 K/uL (0.00-0.22); BASOPHILS % (AUTO) 2.4 % (0.0-2.0); CARBON DIOXIDE 27.9 mmol/L (21-32); CREATININE 0.8 mg/dL (0.6-1.3); EOSINOPHILS % (AUTO) 1.3 % (0.0-4.0); HEMATOCRIT 31.4 % (36-48); HEMOGLOBIN 10.1 g/dL (12.0-16.0); LYMPHOCYTES # (AUTO) 2.2 K/uL (2.5-16.5); LYMPHOCYTES % (AUTO) 28.8 % (20.5-51.1); MEAN CORPUSCULAR HEMOGLOBIN 29 pg (27-31); MEAN CORPUSCULAR HGB CONC 32 g/dL (33-37); MEAN CORPUSCULAR VOLUME 90 fL (80-94); MONOCYTES % (AUTO) 5.4 % (1.7-9.3); NEUTROPHILS % (AUTO) 62.1 % (42.2-75.2); PLATELET COUNT (AUTO) 462 K/uL (140-450); POTASSIUM 4.3 mmol/L (3.5-5.1); RED BLOOD CELL COUNT(AUTO) 3.48 MIL/uL (4.20-5.40); RED CELL DISTRIBUTION WIDTH 16.2 % (11.6-13.7); TOTAL BILIRUBIN 0.1 mg/dL (0.0-1.0)
[2017-12-24] MEDS ORDERED: NACL 0.9% 1,000 ML IV ONE (01:10)
[2017-12-24] MEDS ORDERED: INSULIN REGULAR, HUMAN 100 UNIT/ML VIAL IV ONE (01:10)
[2017-12-24] MEDS ORDERED: MORPHINE SULFATE 4 MG/ML SYR IVP ONE (01:20)
[2017-12-24] MEDS ORDERED: INSULIN LANTUS 100 UNITS/ML 10 ML VIAL SUBQ STA (01:46)
[2017-12-24] MEDS ORDERED: ONDANSETRON 4 MG/2 ML VIAL IVP PRN (01:50)
[2017-12-24] MEDS ORDERED: ALPRAZolam 0.25 MG TAB PO PRN (01:50)
[2017-12-24] MEDS ORDERED: ACETAMINOPHEN 325 MG TAB PO PRN (01:50)
[2017-12-24] MEDS ORDERED: INSULIN LISPRO SLIDING SCALE 100 UNITS/ML VIAL SUBQ PRN (01:50)
[2017-12-24] MEDS ORDERED: DEXTROSE 50% 50 ML SYR IVP PRN (01:50)
[2017-12-24 03:20] VITALS: BP 106/70
[2017-12-24] MEDS: NACL 0.9% 1,000 ML IV SCH ×2 (03:47→11:46)
[2017-12-24] MEDS: BLOOD GLUCOSE MONITORING 1 DEV DEV FS SCH ×3 (03:48→12:33)
[2017-12-24 04:19] VITALS: BP 121/84
[2017-12-24] MEDS: HYDROmorphone PFS 2 MG/ML SYR IVP PRN ×3 (04:21→12:27)
[2017-12-24 08:00] VITALS: BP 113/75
[2017-12-24] MEDS: INSULIN LISPRO 100 UNITS/ML VIAL SUBQ SCH ×2 (08:34→13:00)
[2017-12-24] MEDS: GABAPENTIN 300 MG CAP PO SCH ×2 (08:39→12:27)
[2017-12-24 09:30] LABS: BASOPHILS # (AUTO) 0.2 K/uL (0.00-0.22); BASOPHILS % (AUTO) 2.1 % (0.0-2.0); EOSINOPHILS # (AUTO) 0.1 K/uL (0-0.4); EOSINOPHILS % (AUTO) 1.5 % (0.0-4.0); HEMATOCRIT 31.7 % (36-48); LYMPHOCYTES # (AUTO) 3.1 K/uL (2.5-16.5); LYMPHOCYTES % (AUTO) 33.7 % (20.5-51.1); MEAN CORPUSCULAR HEMOGLOBIN 29 pg (27-31); MEAN CORPUSCULAR HGB CONC 31 g/dL (33-37); MEAN CORPUSCULAR VOLUME 91 fL (80-94); MONOCYTES # (AUTO) 0.7 K/uL (0.8-1.0); NEUTROPHILS # (AUTO) 5.2 K/uL (1.8-7.7); NEUTROPHILS % (AUTO) 54.7 % (42.2-75.2); PLATELET COUNT (AUTO) 455 K/uL (140-450); RED BLOOD CELL COUNT(AUTO) 3.48 MIL/uL (4.20-5.40); RED CELL DISTRIBUTION WIDTH 15.4 % (11.6-13.7); WHITE BLOOD COUNT (AUTO) 9.3 K/uL (4.8-10.8)
[2017-12-24 12:00] VITALS: BP 113/75
[2017-12-24 12:55] LABS: APPEARANCE,URINE CLEAR (CLEAR); BILIRUBIN,URINE NEGATIVE (NEGATIVE); BLOOD, URINE TRACE-I (NEGATIVE); COLOR,URINE YELLOW (YELLOW); LEUKOCYTE ESTERASE ,URINE TRACE (NEGATIVE); NITRITE, URINE NEGATIVE (NEGATIVE); PH,URINE 6.5 (5.0-9.0); UGLUCOSE 3+ (NEGATIVE)
[2017-12-24 13:18] LABS: RBC,URINE 0-5 (RARE) /HPF (0-5); WBC,URINE 0-5 (RARE) /HPF (0-5); YEAST,URINE Few /HPF (None Seen)
[2017-12-24] MEDS ORDERED: ACET-2863 PO (15:52)
[2017-12-24] MEDS ORDERED: CITA20TA15 PO (15:56)
== END 2017-12-24 16:15 | disposition home or self-care (01) | DRG 420 ==
LOC: MED 20:45 → MTU 12-24 01:56
PROVIDERS: ADMIT Hospitalist; ATTEND Hospitalist
DX: E10.65 Type 1 diabetes mellitus with hyperglycemia (principal); E43 Unspecified severe protein-calorie malnutrition; E86.0 Dehydration; F17.200 Nicotine dependence, unspecified, uncomplicated; G89.29 Other chronic pain; F41.9 Anxiety disorder, unspecified; Z88.0 Allergy status to penicillin; Z88.6 Allergy status to analgesic agent; Z91.040 Latex allergy status; Z68.1 Body mass index [BMI] 19.9 or less, adult; Z88.5 Allergy status to narcotic agent; Z79.4 Long term (current) use of insulin; Z79.891 Long term (current) use of opiate analgesic; Z91.19 Patient's noncompliance with other medical treatment and regimen
CPT/HCPCS: 36415; 80053; 80305; 81001; 81025; 82948; 83690; 84484; 85025; 87081; 87086; 93005; 96360; 96361; 99285; J1170; J1644; J1815; J2270; J7030

== ENCOUNTER 2017-12-31 19:12 | Inpatient (IN) | payer OTHER ==
[~2017-12-31] VITALS: Ht 157.5 cm; Wt 45.8 kg
[~2017-12-31 19:12] MED LIST changes: +ACET-2863 PO; -ALPR0.252 PO; +CITA20TA15 PO
[2017-12-31 19:53] VITALS: BP 98/69
--- NOTE | 2017-12-31 20:08 | NUR ---
PT AMBULATED TO CHAIR A. SAMANTHA MILLER MADE AWARE.
--- NOTE | 2017-12-31 20:17 | NUR ---
42/F CAME IN W C/O SUBSTERNAL CHEST PAIN STARTED AT 0900 TODAY, PRESSURE NONPROVOKED, RADIATING TO RT ARM. PT STATES " I GOT UP AND THE CHEST PAIN STARTED". DENIES SOB/COUGH, DENIES N/V/D, SKIN IS WARM AND DRY, AOX4, GCS 15. ALL LUNG SOUNDS CBTA, 16RR EVEN AND UNLABORED. PT ALSO C/O LOWER BACK PAIN, CHRONIC, HX SCIATICA, WORSEN X 1 DAY. PMH: DM, FIBROMYLAGIA, HYPERTHYROIDISM. ACCUCHECK TO HIGH TO READ, ER MD NEWMAN MADE AWARE Addendum: 12/31/17 at 6 by ROLA PT PLACED ON OPTIC FIBRE DRAWER AND PULSE OX
[2017-12-31] MEDS ORDERED: NACL 0.9% 1,000 ML IV ONE ×4 (21:30→23:30)
[2017-12-31] MEDS ORDERED: MORPHINE SULFATE 4 MG/ML SYR IVP ONE ×2 (21:30→22:40)
[2017-12-31 21:58] LABS: BASOPHILS # (AUTO) 0.1 K/uL (0.00-0.22); BASOPHILS % (AUTO) 1.6 % (0.0-2.0); EOSINOPHILS % (AUTO) 0.5 % (0.0-4.0); HEMATOCRIT 38.5 % (36-48); HEMOGLOBIN 12.2 g/dL (12.0-16.0); LYMPHOCYTES # (AUTO) 2.2 K/uL (2.5-16.5); LYMPHOCYTES % (AUTO) 23.5 % (20.5-51.1); MEAN CORPUSCULAR HEMOGLOBIN 28 pg (27-31); MEAN CORPUSCULAR HGB CONC 32 g/dL (33-37); MEAN CORPUSCULAR VOLUME 90 fL (80-94); MONOCYTES # (AUTO) 0.5 K/uL (0.8-1.0); MONOCYTES % (AUTO) 5.1 % (1.7-9.3); NEUTROPHILS # (AUTO) 6.4 K/uL (1.8-7.7); NEUTROPHILS % (AUTO) 69.3 % (42.2-75.2); PLATELET COUNT (AUTO) 669 K/uL (140-450); RED BLOOD CELL COUNT(AUTO) 4.29 MIL/uL (4.20-5.40); RED CELL DISTRIBUTION WIDTH 15.4 % (11.6-13.7); WHITE BLOOD COUNT (AUTO) 9.2 K/uL (4.8-10.8)
--- NOTE | 2017-12-31 22:00 | NUR ---
Patient appears to be resting comfortably in bed. Vital Signs within normal limits. Respirations even and unlabored.denies chest pain
[2017-12-31 22:17] LABS: APPEARANCE,URINE CLEAR (CLEAR); BILIRUBIN,URINE NEGATIVE (NEGATIVE); BLOOD, URINE NEGATIVE (NEGATIVE); COLOR,URINE YELLOW (YELLOW); LEUKOCYTE ESTERASE ,URINE NEGATIVE (NEGATIVE); NITRITE, URINE NEGATIVE (NEGATIVE); PH,URINE 6.5 (5.0-9.0); UGLUCOSE 3+ (NEGATIVE)
[2017-12-31 22:32] LABS: ALBUMIN 3.2 g/dL (3.4-5.0); ANION GAP 12.2 (8-16); CARBON DIOXIDE 28.7 mmol/L (21-32); CREATININE 0.9 mg/dL (0.6-1.3); POTASSIUM 3.9 mmol/L (3.5-5.1); TOTAL BILIRUBIN 0.2 mg/dL (0.0-1.0)
[2017-12-31 22:57] LABS: ACETONE, SERUM NEGATIVE (NEGATIVE)
[2017-12-31] MEDS ORDERED: IRR IV ONE ×3 (23:35)
[2017-12-31] MEDS ORDERED: POTASSIUM CHLORIDE IV ONE ×3 (23:35)
[2017-12-31] MEDS ORDERED: INSULIN REGULAR IV ONE ×3 (23:35)
[2017-12-31] MEDS ORDERED: HUMAN IV ONE ×3 (23:35)
[2017-12-31] MEDS ORDERED: NACL 0.9% IV ONE ×3 (23:35)
[2017-12-31] MEDS ORDERED: DEXTROSE 50% 50 ML SYR IVP PRN (23:45)
[2017-12-31] MEDS ORDERED: INSULIN REGULAR, HUMAN 100 UNIT in NACL 0.9% 100 ML IV SCH ×2 (23:45)
[2017-12-31] MEDS ORDERED: POTASSIUM CHL 20 MEQ/NACL 0.9% 1,000 ML IV ONE (23:45)
[2018-01-01] MEDS ORDERED: NACL 0.9% 1,000 ML IV SCH (00:16)
[2018-01-01] MEDS ORDERED: HYDROcodone/APAP 5/325 MG 1 TAB TAB PO PRN (00:20)
[2018-01-01] MEDS ORDERED: ACETAMINOPHEN 325 MG TAB PO PRN (00:20)
[2018-01-01] MEDS ORDERED: DEXTROSE 50% 50 ML SYR IVP PRN ×2 (00:20→10:15)
[2018-01-01] MEDS ORDERED: INSULIN LISPRO SLIDING SCALE 100 UNITS/ML VIAL SUBQ PRN ×2 (00:20→10:15)
[2018-01-01] MEDS ORDERED: ONDANSETRON 4 MG/2 ML VIAL IVP PRN (00:20)
[2018-01-01] MEDS: BLOOD GLUCOSE MONITORING 1 DEV DEV FS SCH ×3 (00:39→01:54)
--- NOTE | 2018-01-01 01:00 | NUR ---
Patient appears to be resting comfortably in bed. Vital Signs within normal limits. Respirations even and unlabored.denies chest pain
--- NOTE | 2018-01-01 01:20 | NUR ---
Patient will be admitted to care of DR CUTLER. Admited to ICU. Will go to room 3. Belongings list completed. Report to CHARLES WILLIS. IV INFUSING
--- NOTE | 2018-01-01 01:30 | NUR ---
PATIENT ADMITTED FROM ED AT THIS TIME, ON REGULAR INSULIN DRIP, 5 UNITS/HR, IVF INFUSING, ST ON THE MONITOR, AAOX4, RESPIRATIONS NORMAL, IV ON RAC G#20 PATENT AND INTACT. PATIENT USES CANE WHEN AMBULATING. PATIENT COMPLAINING OF CHEST/BACK PAIN 06/07, WILL GIVE MORPHINE IVP.
[2018-01-01] MEDS: MORPHINE SULFATE 4 MG/ML SYR IVP PRN ×2 (01:46→05:43)
--- NOTE | 2018-01-01 01:50 | NUR ---
BS CHECKED 225 NOTED. DECREASED INSULIN DRIP TO 2UNITS/HR ORDERED. NO ACUTE DISTRESS NOTED. ST ON THE DRILL RUNNER. WILL CONTINUE TO MONITOR.
--- NOTE | 2018-01-01 02:00 | NUR ---
PATIENT STATED THAT SHE RECEIVED FLU VACCINE LAST YEAR, AROUND [place] AND THAT PATIENT WANTED TO RECEIVE PNA VACCINE HERE.
--- NOTE | 2018-01-01 02:19 | NUR ---
WILLIAM CUTLER AT 0200, VERIFIED ADMITTING ORDERS, PATIENT IS TELEMETRY ADMISSION, ARMIN LOPEZ, PICKLE MAKER INFORMED. Addendum: 01/01/18 at 0552 by Lauren Campbell RN WILLIAM CUTLER AT 0200, VERIFIED ADMITTING ORDERS, PATIENT IS TELEMETRY ADMISSION. INFORMED THAT CURRENT BLOOD SUGAR WAS 225 AT 0145, DR. CUTLER ORDERED TO DC INSULIN REGULAR DRIP, DC ACCUCHECK Q1H. ARMIN LOPEZ, PICKLE MAKER INFORMED THAT PATIENT IS TELEMETRY ADMISSION.
[2018-01-01] MEDS ORDERED: PNEUMOCOCCAL VACCINE 23 MCG/0.5 ML VIAL IMVAC SCH ×2 (03:00→06:00)
[2018-01-01] MEDS: HYDROcodone/APAP 10/325 MG 1 TAB TAB PO PRN ×2 (03:01→09:29)
--- NOTE | 2018-01-01 03:05 | NUR ---
ADMINISTERED PRN NORCO 10/325MG ORDERED. PT COMPLAINED SHARP PAIN TO RIGHT SIDED ABDOMEN 04/07. NO ACUTE RESPIRATORY DISTRESS NOTED. WILL CONTINUE TO MONITOR.
[2018-01-01 04:00] VITALS: BP 113/74
--- NOTE | 2018-01-01 05:45 | NUR ---
PT COMPLAINED ABOUT SHARP, CRAMPING PAIN TO RIGHT SIDED ABDOMEN 8/10. ADMINISTERED PRN PAIN MEDICATIONS ORDERED. ST ON THE MONITOR. NO ACUTE RESPIRATORY DISTRESS NOTED. WILL CONTINUE TO MONITOR.
--- NOTE | 2018-01-01 07:00 | NUR ---
PAGED DR. CUTLER TO VERIFY AGAIN PATIENT'S HUMALOG ORDER, PER PATIENT SHE IS TAKING ONLY 10 UNITS OF HUMALOG INSULIN TID AC, ASKED MD IF HE WANTS TO CONTINUE THE HUMALOG SLIDING SCALE , MD STATED "OK DC THE SLIDING SCALE". MD INFORMED ALSO THAT PATIENT'S WANTS TO HAVE PNA VACCINE BEFORE DISCHARGE, MD SAID "OK". PATIENT TRANSFERRED TO [facility] AT 0650 ACCOMPANIED BY ALBA DICKENS.
--- NOTE | 2018-01-01 07:10 | NUR ---
PT TRANSFERRED TO TELE ROOM 126 B, REPORT GIVEN TO BRIT. ALBA. VSS. NO ACUTE DISTRESS NOTED.
--- NOTE | 2018-01-01 07:10 | NUR ---
RECEIVED PATIENT REPORT FROM ICU NURSE. PATIENT IS ALERT AND ORIENTED X4 AT THIS TIME. PATIENT IS AMBULATORY WITH A CANE. PATIENT HAS IV ACCESS ON HER RIGHT AC 20G. RESPIRATIONS ARE WITHIN NORMAL LIMITS AND EVEN AND UNLABORED. PATIENT DOES NOT COMPLAIN OF PAIN AT THIS TIME. UPDATED BOARD AND LOWERED BED. INSTRUCTED PATIENT TO CALL IF SHE NEEDS ANYTHING. WILL CONTINUE TO MONITOR PATIENT.
[2018-01-01 07:25] LABS: CREATINE KINASE MB 0.3 ng/mL (0-3.6)
[2018-01-01] MEDS ORDERED: INSULIN LISPRO 100 UNITS/ML VIAL SUBQ SCH ×2 (07:30→11:30)
[2018-01-01] MEDS ORDERED: BLOOD GLUCOSE MONITORING 1 DEV DEV FS SCH ×2 (07:30→11:30)
[2018-01-01 08:00] VITALS: BP 106/85
--- NOTE | 2018-01-01 08:47 | NUR ---
PATIENT HAS BEEN SCREENED AND CATEGORIZED HIGH NUTRITION RISK. PATIENT WILL BE SEEN WITHIN 1-2 DAYS OF ADMISSION. 12/31/17-01/01/[address]
[2018-01-01] MEDS ORDERED: GABAPENTIN 300 MG CAP PO SCH (09:00)
[2018-01-01] MEDS ORDERED: GABAPENTIN 200 MG, GABAPENTIN 600 MG PO SCH ×2 (09:00)
[2018-01-01] MEDS ORDERED: ENOXAPARIN 40 MG/0.4 ML SYR SUBQ SCH (09:00)
[2018-01-01] MEDS ORDERED: CITALOPRAM 20 MG TAB PO SCH (09:00)
--- NOTE | 2018-01-01 09:29 | NUR ---
PATIENT COMPLAINED OF PAIN AT THIS TIME. PATIENT SAID, "I'VE TAKEN NORCO BEFORE". GAVE PAIN MEDICATIONS TO PATIENT TO COUNTER PAIN. WILL CONTINUE TO MONITOR PATIENT.
[2018-01-01] MEDS ORDERED: INSU100S22 SUBQ (09:38)
[2018-01-01] MEDS ORDERED: HUM SUBQ (09:38)
--- NOTE | 2018-01-01 09:49 | NUR ---
INFORMED PATIENT THAT SHE WILL BE DISCHARGED TODAY. INFORMED PATIENT THAT DR. SILVA DISCONTINUED HER PRN MORPHINE. PATIENT APPEARS AGITATED AND WANTS TO TALK TO TALK TO CHARGE NURSE. WILL CONTINUE TO MONITOR PATIENT.
[2018-01-01] MEDS ORDERED: HYDROcodone/APAP 10/325 MG 1 TAB TAB PO PRN (10:20)
--- NOTE | 2018-01-01 10:20 | NUR ---
ASKED PATIENT IF I CAN CHECK HER BLOOD SUGAR. PATIENT REFUSES TO HAVE IT CHECKED. PATIENT APPEARS AGITATED AT THIS TIME.
--- NOTE | 2018-01-01 11:00 | NUR ---
PT WAS COMPLAINING EARLIER REGARDING NOT GETTING DISCHARGE PRESCRIPTIONS FOR PAIN FROM DR. SILVA. SPOKE WITH DR. SILVA AT THE NURSING STATION STATED PT HAS BEEN PRESCRIBED AND HAD REFILLS ON HER PREVIOUS ER VISITS AND PREVIOUS ADMISSIONS IN [facility] SINCE NOVEMBER 10, 2017 TO DECEMBER 28, 2017. RECEIVED A FAX FROM DR. SILVA REFLECTING HYDROCODONE, LORAZEPAM, TRAMADOL, PRESCRIPTIONS ON THOSE MENTIONED DATES. THE LIST IS FILED ON PT'S CHART. DAMAGED FREIGHT INSPECTOR MADE AWARE.
--- NOTE | 2018-01-01 11:07 | NUR ---
PATIENT WANTS HER INTRAVENOUS LINE TAKEN OUT. OFFERED TO CHECK HER BLOOD SUGAR BUT PATIENT REFUSED. PATIENT IS STILL AGITATED AT THIS TIME. TOLD PATIENT THAT I AM PREPARING HER DISCHARGE PAPERS AND I WILL BE IN HER ROOM SOON. PATIENT SAID, "I'M NOT SIGNING ANYTHING. PLEASE TAKE OUT MY IV LINE RIGHT NOW".
--- NOTE | 2018-01-01 11:15 | NUR ---
DISCONTINUED PATIENT'S INTRAVENOUS SITE ON HER RIGHT AC WITH CATHETER STILL INTACT. CUT OFF PATIENT'S IDENTIFICATION BANDS. PATIENT REFUSED TO HAVE HER BLOOD SUGAR CHECKED. PATIENT DID NOT WANT TO SIGN ANY PAPERS. PATIENT LEFT THE UNIT WITH BELONGINGS.
[2018-01-01] MEDS ORDERED: INSULIN LANTUS 100 UNITS/ML 10 ML VIAL SUBQ SCH (21:00)
--- NOTE | 2018-01-02 07:07 | NUR ---
CM NOTE RETRO FAXED DISCHARGE SUMMARY, H&P AND DR'S ER NOTES TO [facility] [id number] YARI PH# [phone]
== END 2018-01-01 11:15 | disposition home or self-care (01) | DRG 203 ==
LOC: MED 19:12 → MIC 01-01 00:31 → MMU 01-01 06:50
PROVIDERS: ADMIT Hospitalist; ATTEND Hospitalist
DX: R07.89 Other chest pain (principal); E11.00 Type 2 diabetes mellitus with hyperosmolarity without nonketotic hyperglycemic-hyperosmolar coma (NKHHC); I11.0 Hypertensive heart disease with heart failure; E11.40 Type 2 diabetes mellitus with diabetic neuropathy, unspecified; E44.0 Moderate protein-calorie malnutrition; F11.20 Opioid dependence, uncomplicated; E11.65 Type 2 diabetes mellitus with hyperglycemia; E87.1 Hypo-osmolality and hyponatremia; E05.90 Thyrotoxicosis, unspecified without thyrotoxic crisis or storm; M79.7 Fibromyalgia; F17.210 Nicotine dependence, cigarettes, uncomplicated; G89.4 Chronic pain syndrome; F41.9 Anxiety disorder, unspecified; F32.9 Major depressive disorder, single episode, unspecified; Z88.0 Allergy status to penicillin; Z88.8 Allergy status to other drugs, medicaments and biological substances; Z88.1 Allergy status to other antibiotic agents; Z91.041 Radiographic dye allergy status; Z91.19 Patient's noncompliance with other medical treatment and regimen; Z68.1 Body mass index [BMI] 19.9 or less, adult
CPT/HCPCS: 36415; 71045; 80053; 81003; 81025; 82009; 82550; 82553; 82948; 83605; 83880; 84484; 85025; 87040; 87081; 96361; 96365; 96375; 99285; J1650; J1815; J2270; J3480; J7030

== ENCOUNTER 2018-01-07 18:42 | Emergency (ER) | payer OTHER ==
[~2018-01-07] VITALS: Ht 157.5 cm; Wt 45.4 kg
[~2018-01-07 18:42] MED LIST changes: +INSU100S22 SUBQ; -LANTUS SUBQ
[2018-01-07 18:57] VITALS: BP 74/51
--- NOTE | 2018-01-07 19:17 | NUR ---
BLOOD SUGAR 254MG/DL AT BEDSIDE
--- NOTE | 2018-01-07 19:19 | NUR ---
PT AMBULATED TO ER BED 11
--- NOTE | 2018-01-07 19:20 | NUR ---
42/F CAME IN FOR SYNCOPE EPISODE, PT STATED "I PASSED OUT AND HIT MY HEAD." PT HAS LACERATION ON L HEAD, BLEEDING CONTROLLED. PT C/O / PAIN ON L HEAD, BACK OF HEAD, L BUTTOCKS AND L KNEE, +TENDERNESS. PT PLACED ON TRIM AND BURR OPERATOR. HX FIBROMYALGIA, NEUROPATHY, ARTHRITIS, SCIATIC NERVE PAIN. BP 102/69, HR 117, SPO2 98% ON ROOM AIR, RR 13 EVEN AND UNLABORED. BLOOD GLUCOSE 254. ER MD MADE AWARE.
--- NOTE | 2018-01-07 19:50 | NUR ---
PT REFUSED TYLENOL 1000MG PO, PT STATED "I TAKE THAT AT HOME AND ALSO NORCO." PT ALSO REFUSED TDAP VACCINE DESPITE EDUCAITON, PT STATED "I DON'T NEED THAT, I FELL ON TILE." MADE DR POLLACK AWARE. STATED IT IS NOT SAFE TO GIVE PT NARCOTIC DUE TO DECREASE IN BP. MADE PT AWARE, PT UPSET AT THIS TIME.
[2018-01-07 20:10] LABS: BASOPHILS # (AUTO) 0.2 K/uL (0.00-0.22); BASOPHILS % (AUTO) 2.3 % (0.0-2.0); EOSINOPHILS # (AUTO) 0.1 K/uL (0-0.4); EOSINOPHILS % (AUTO) 1.3 % (0.0-4.0); HEMATOCRIT 35.5 % (36-48); HEMOGLOBIN 11.6 g/dL (12.0-16.0); MEAN CORPUSCULAR HEMOGLOBIN 29 pg (27-31); MEAN CORPUSCULAR HGB CONC 33 g/dL (33-37); MEAN CORPUSCULAR VOLUME 87 fL (80-94); MONOCYTES # (AUTO) 0.6 K/uL (0.8-1.0); MONOCYTES % (AUTO) 5.7 % (1.7-9.3); NEUTROPHILS # (AUTO) 6.8 K/uL (1.8-7.7); NEUTROPHILS % (AUTO) 69.7 % (42.2-75.2); PLATELET COUNT (AUTO) 511 K/uL (140-450); RED BLOOD CELL COUNT(AUTO) 4.07 MIL/uL (4.20-5.40); RED CELL DISTRIBUTION WIDTH 15.3 % (11.6-13.7); WHITE BLOOD COUNT (AUTO) 9.7 K/uL (4.8-10.8)
[2018-01-07] MEDS: ACETAMINOPHEN EXTRA STRENGTH 500 MG TAB PO ONE (20:12)
[2018-01-07 20:16] LABS: ANION GAP 12.3 (8-16); CARBON DIOXIDE 23.8 mmol/L (21-32); CREATININE 0.8 mg/dL (0.6-1.3); POTASSIUM 3.1 mmol/L (3.5-5.1)
[2018-01-07 20:20] LABS: APPEARANCE,URINE CLEAR (CLEAR); BILIRUBIN,URINE NEGATIVE (NEGATIVE); BLOOD, URINE 3+ (NEGATIVE); COLOR,URINE YELLOW (YELLOW); LEUKOCYTE ESTERASE ,URINE NEGATIVE (NEGATIVE); NITRITE, URINE NEGATIVE (NEGATIVE); UGLUCOSE 3+ (NEGATIVE)
[2018-01-07 20:22] LABS: ALBUMIN 2.8 g/dL (3.4-5.0); TOTAL BILIRUBIN 0.2 mg/dL (0.0-1.0)
[2018-01-07 20:30] LABS: RBC,URINE 11-20 (MOD) /HPF (0-5)
[2018-01-07 20:31] LABS: YEAST,URINE Few /HPF (None Seen)
[2018-01-07] MEDS: BACITRACIN OINT 500 UNITS/GM PKT TP ONE (21:11)
[2018-01-07] MEDS: POTASSIUM CHLORIDE 10 MEQ TABER PO ONE (21:11)
--- NOTE | 2018-01-07 21:12 | NUR ---
MADE PT AWARE OF LOW K 3.1, PT REFUSED K-ARMANDO PO DESPITE EDUCATION. EDUCATED PT TO EAT FOOD RICH IN K. PT AGREED TO HAVE BACITRACIN APPLIED. MADE AWARE OF PT REFUSING K-ARMANDO PO AND PT C/O PAIN, MD AWARE, NO ADDITIONAL ORDERS AT THIS TIME.
[2018-01-07 21:51] LABS: BARBITURATE, URINE NEG. ng/ml (NEG <=200); BENZODIAZEPINE, URINE POS. ng/mL (NEG <=200); CANNABINOID, URINE NEG. ng/mL (NEG <=50); COCAINE, URINE NEG. ng/mL (NEG <=300); OPIATE, URINE NEG. ng/mL (NEG <=2000); PHENCYCLIDINE SCREEN,URINE NEG. ng/mL (NEG <=25)
[2018-01-07 21:55] VITALS: BP 102/62
--- NOTE | 2018-01-07 21:56 | NUR ---
Patient discharged with v/s stable. Written and verbal after care instructions given and explained. Patient verbalized understanding. Ambulatory with steady gait. All questions addressed prior to discharge. Advised to follow up with PMD. Pt left without discharge instructions.
== END 2018-01-07 21:56 | disposition home or self-care (01) ==
LOC: MED 18:42
DX: R55 Syncope and collapse (principal); S09.90XA Unspecified injury of head, initial encounter; S00.81XA Abrasion of other part of head, initial encounter; G89.29 Other chronic pain; R94.31 Abnormal electrocardiogram [ECG] [EKG]; E11.9 Type 2 diabetes mellitus without complications; M79.7 Fibromyalgia; M19.90 Unspecified osteoarthritis, unspecified site; F17.210 Nicotine dependence, cigarettes, uncomplicated; Z79.4 Long term (current) use of insulin; Z88.0 Allergy status to penicillin; Z88.5 Allergy status to narcotic agent; Z88.8 Allergy status to other drugs, medicaments and biological substances; Z91.040 Latex allergy status; X58.XXXA Exposure to other specified factors, initial encounter; Y93.01 Activity, walking, marching and hiking; Y92.091 Bathroom in other non-institutional residence as the place of occurrence of the external cause; Y99.8 Other external cause status
CPT/HCPCS: 36415; 70450; 71045; 72125; 80053; 80305; 81001; 81025; 82948; 85025; 86886; 86900; 86901; 87086; 90715; 93005; 99285

== ENCOUNTER 2018-01-09 19:51 | Emergency (ER) | payer OTHER ==
[~2018-01-09] VITALS: Ht 157.5 cm; Wt 45.4 kg
[2018-01-09 19:57] VITALS: BP 98/62
--- NOTE | 2018-01-09 21:11 | NUR ---
Dr. Manning evaluating patient.
[2018-01-09] MEDS ORDERED: NACL 0.9% 1,000 ML IV ONE (21:20)
[2018-01-09] MEDS ORDERED: fentaNYL 0.05 MG/ML VIAL IVP ONE (22:30)
[2018-01-09 23:36] VITALS: BP 98/62
--- NOTE | 2018-01-09 23:38 | NUR ---
Patient discharged with v/s stable. Written and verbal after care instructions given and explained. Patient verbalized understanding. Ambulatory with steady gait. All questions addressed prior to discharge. Advised to follow up with PMD.
--- NOTE | 2018-01-12 10:27 | NUR ---
late entry from 01/09/18 1L NS at 999ml/hr Start time 2140 End time 2240
== END 2018-01-09 23:38 | disposition home or self-care (01) ==
LOC: MED 19:51
DX: E11.65 Type 2 diabetes mellitus with hyperglycemia (principal); E11.40 Type 2 diabetes mellitus with diabetic neuropathy, unspecified; M79.7 Fibromyalgia; Z88.0 Allergy status to penicillin; Z88.5 Allergy status to narcotic agent; Z88.6 Allergy status to analgesic agent; Z91.040 Latex allergy status
CPT/HCPCS: 82948; 96361; 96374; 99284; J3010; J7030

== ENCOUNTER 2018-01-21 20:28 | Inpatient (IN) | payer OTHER ==
[~2018-01-21] VITALS: Ht 157.5 cm; Wt 45.4 kg
--- NOTE | 2018-01-21 20:32 | NUR ---
PT TRISTA LEVY. TAKEN TO CHAIR E
[2018-01-21 20:35] VITALS: BP 109/68
--- NOTE | 2018-01-21 20:40 | NUR ---
42Y F BIBA FOR AB PAIN X 4 DAYS WITH NAUSEA. SKIN IS PINK/WARM/DRY; AAOX4 WITH EVEN AND STEADY GAIT; LUNGS CLEAR BL; HR EVEN AND REGULAR; PT DENIES ANY FEVER, CP, SOB, OR COUGH AT THIS TIME; PATIENT STATES PAIN OF 10/10 AT THIS TIME; VSS; PATIENT POSITIONED FOR COMFORT; HOB ELEVATED; BEDRAILS UP X2; BED DOWN. ER MD MADE AWARE OF PT STATUS.
--- NOTE | 2018-01-21 20:49 | NUR ---
PHLEB DRAWING LABS IN CHAIR E
[2018-01-21 21:02] LABS: BASOPHILS # (AUTO) 0.3 K/uL (0.00-0.22); EOSINOPHILS # (AUTO) 0.1 K/uL (0-0.4); HEMATOCRIT 35.8 % (36-48); HEMOGLOBIN 11.4 g/dL (12.0-16.0); LYMPHOCYTES # (AUTO) 2.9 K/uL (2.5-16.5); MEAN CORPUSCULAR HEMOGLOBIN 28 pg (27-31); MEAN CORPUSCULAR HGB CONC 32 g/dL (33-37); MEAN CORPUSCULAR VOLUME 88.3 fL (80-94); MONOCYTES # (AUTO) 0.4 K/uL (0.8-1.0); NEUTROPHILS # (AUTO) 6.2 K/uL (1.8-7.7); PLATELET COUNT (AUTO) 713 K/uL (140-450); RED BLOOD CELL COUNT(AUTO) 4.05 MIL/uL (4.20-5.40); RED CELL DISTRIBUTION WIDTH 14.8 % (11.6-13.7); WHITE BLOOD COUNT (AUTO) 9.9 K/uL (4.8-10.8)
--- NOTE | 2018-01-21 21:36 | NUR ---
Dr. Lopez evaluating patient.
[2018-01-21] MEDS ORDERED: NACL 0.9% 1,000 ML IV ONE (21:40)
[2018-01-21] MEDS ORDERED: HYDROcodone/APAP 5/325 MG 1 TAB TAB PO ONE (21:40)
--- NOTE | 2018-01-21 22:05 | NUR ---
PT TAKEN TO CT
--- NOTE | 2018-01-21 22:24 | NUR ---
PT RETURN FROM CT
[2018-01-21 22:40] LABS: APPEARANCE,URINE CLEAR (CLEAR); BILIRUBIN,URINE NEGATIVE (NEGATIVE); BLOOD, URINE TRACE-I (NEGATIVE); COLOR,URINE YELLOW (YELLOW); LEUKOCYTE ESTERASE ,URINE NEGATIVE (NEGATIVE); NITRITE, URINE NEGATIVE (NEGATIVE); UGLUCOSE 3+ (NEGATIVE)
--- NOTE | 2018-01-21 22:50 | NUR ---
PT MOVED TO BED 2
[2018-01-21] MEDS ORDERED: ONDANSETRON 4 MG/2 ML VIAL IVP ONE (23:35)
[2018-01-21] MEDS ORDERED: MORPHINE SULFATE 5 MG/ML VIAL IVP ONE (23:35)
[2018-01-21] MEDS ORDERED: metroNIDAZOLE 500 MG TAB PO ONE (23:40)
[2018-01-21] MEDS ORDERED: CIPROFLOXACIN 250 MG TAB PO ONE (23:40)
--- NOTE | 2018-01-21 23:50 | NUR ---
PT RESTING IN BED, C/O INCREASING PAIN DESPITE NORCO PO. MADE DR NEWMAN AWARE.
[2018-01-22 00:30] LABS: RBC,URINE 3-10 (FEW) /HPF (0-5); WBC,URINE 0-5 (RARE) /HPF (0-5); YEAST,URINE Many /HPF (None Seen)
[2018-01-22] MEDS ORDERED: NACL 0.9% 500 ML IV ONE (00:35)
[2018-01-22] MEDS ORDERED: NACL 0.9% 1,000 ML IV ONE (00:35)
[2018-01-22 00:38] LABS: ANION GAP 14.9 (8-16); CARBON DIOXIDE 24.6 mmol/L (21-32); POTASSIUM 3.5 mmol/L (3.5-5.1)
[2018-01-22 00:41] LABS: CREATININE 0.8 mg/dL (0.6-1.3)
--- NOTE | 2018-01-22 00:41 | NUR ---
PT C/O PAIN ON IV SITE AFTER STARTING TO ADMINISTER NS BOLUS. ATTEMPTED TO INSERT IV 3X, PT REFUSED FURTHER ATTEMPTS AND REQUESTED ANOTHER RN TO INSERT. NOTIFIED [employer]TER DISPATCHER TO INSERT IV
[2018-01-22 00:42] LABS: TOTAL BILIRUBIN 0.1 mg/dL (0.0-1.0)
[2018-01-22] MEDS ORDERED: NACL 0.9% 1,000 ML IV SCH (00:52)
[2018-01-22] MEDS ORDERED: ONDANSETRON 4 MG/2 ML VIAL IVP PRN (00:55)
[2018-01-22] MEDS ORDERED: ACETAMINOPHEN 325 MG TAB PO PRN (00:55)
[2018-01-22] MEDS ORDERED: INSULIN LISPRO SLIDING SCALE 100 UNITS/ML VIAL SUBQ PRN (00:55)
[2018-01-22] MEDS ORDERED: LEVOFLOXACIN 750 MG/D5W PREMIX 150 ML IV SCH (00:55)
[2018-01-22] MEDS ORDERED: metroNIDAZOLE 500 MG/NS PREMIX 100 ML IV SCH ×2 (01:00→13:00)
--- NOTE | 2018-01-22 01:16 | NUR ---
ACCUCHECK 58 AT THIS TIME, DR NEWMAN MADE AWARE, INSTRUCTED TO GIVE JUICE AND SNACKS, PT ABLE TO TOLERATE WELL, WILL REPEAT ACCUCHECK BEFORE ADMIT TO TELE
--- NOTE | 2018-01-22 01:42 | NUR ---
ACCUCHECK 162 AT THIS TIME, PT CONDITION STABLE.
--- NOTE | 2018-01-22 01:45 | NUR ---
Patient will be admitted to care of DR MAGUIRE. Admited to TELE. Will go to room 106B. Belongings list completed. Report to ALBA GOODSON AT BEDSIDE.
--- NOTE | 2018-01-22 02:00 | NUR ---
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 PT HAS 20G IV TO RIGHT WRIST/FA. PT AMBULATES WITH STEADY GAIT. PT HAS DRY SCABS ON UPPER BACK. UPDATED BOARD. MRSA SWAB OBTAINED AND SENT TO LAB. DISCUSSED PLAN OF CARE WITH PT, PT VERBALIZED UNDERSTANDING. VITAL SIGNS WITHIN NORMAL LIMITS. PT IN STABLE CONDITION, NO SIGNS OF DISTRESS NOTED. BED IN LOWEST POSITION, CALL LIGHT WITHIN REACH. WILL CONTINUE TO MONITOR.
[2018-01-22] MEDS: MORPHINE SULFATE 2 MG/ML SYR IVP PRN ×2 (02:44→06:54)
--- NOTE | 2018-01-22 02:45 | NUR ---
ADMINISTERED MORPHINE FOR ABDOMINAL PAIN, PT TOLERATED WELL BUT SAID 2MG OF MORPHINE IS NOT GOING TO DO ANYTHING AND THAT SHE NEEDS DILAUDID. TOLD PT IF MORPHINE DID NOT WORK I WOULD SPEAK TO THE DR, PT VERBALIZED UNDERSTANDING.
--- NOTE | 2018-01-22 03:03 | NUR ---
PAGED DR SHEPHERD DIRECTOR OF HOUSING FOR DR MAGUIRE. PT STATES MORPHINE WILL NOT WORK AND WANTS ME TO CALL IMMEDIATELY. SHE ALSO WANTS TO ORDER AMBIEN AND ANXIETY MEDICATION.
--- NOTE | 2018-01-22 03:30 | NUR ---
DR SHEPHERD HAS NOT CALLED BACK AND PT STATES IF SHE DOESN'T GET STRONGER PAIN MED LIKE "5MG OF MORPHINE OR DILAUDID" THEN SHE WILL LEAVE AMA. SHE REQUESTS TO CHANGE DOCTOR TO THE RESIDENTS BECAUSE "DR SHEPHERD AND THAT GROUP WON'T GIVE ME WHAT I NEED, THE RESIDENTS WILL."
[2018-01-22 03:53] VITALS: BP 127/67
--- NOTE | 2018-01-22 03:53 | NUR ---
CALL PLACE TO DR CORA MILLER PLANTING SUPERVISOR PT C/O SEVERE ABDOMINAL PAIN, MD WILL CALL BACK.
--- NOTE | 2018-01-22 03:59 | NUR ---
EXPLAINED TO DR. SHEPHERD PT IS STILL IN A LOT OF PAIN, ORDER NORCO ,I ASKED FOR ANOTHER MORPHINE MD SAID NO, WILL EXPLAINED TO PT.
[2018-01-22] MEDS ORDERED: HYDROcodone/APAP 7.5/325 MG 1 TAB PO PRN (04:00)
--- NOTE | 2018-01-22 06:30 | NUR ---
DID NOT ADMINISTER THE SLIDING SCALE INSULIN COVERAGE BECAUSE PT JUST ATE AND DRANK ORANGE JUICE PRIOR TO CHECKING BLOOD SUGAR. PT ALSO STATED SHE DIDN'T WANT THE INSULIN.
--- NOTE | 2018-01-22 06:45 | NUR ---
IVF KEEP STOPPING, THERE ARE NO KINKS IN THE LINE. FLUSHED PT IV AND PT SCREAMED IN PAIN, FLUSHED A LITTLE SLOWER AND PT SAID IT WAS STILL BURNING. PT ASKED FOR MORPHINE, TOLD PT CANNOT ADMINISTER MORPHINE WHEN IV LINE IS INFILTRATED. PT SAID IT WASN'T, SHE SAID SHE WOULD SHOW ME IT WASN'T AND SHE SAID TO FLUSH IT AGAIN. FLUSHED AGAIN BUT STARTED TO SEE A BUMP RISING, TOLD PT IT WAS INFILTRATED AND PT GOT ANGRY. PT STATES SHE NEEDS MORPHINE NOW AND TO CALL LUNG GUN OPERATOR.
--- NOTE | 2018-01-22 06:50 | NUR ---
PRINCIPAL SYSTEMS ARCHITECT CHECKED IV AND SAID IT WAS GOOD.
--- NOTE | 2018-01-22 06:54 | NUR ---
ARMIN GLOST KILN OPERATOR ADMINISTERED MORPHINE TO PT.
[2018-01-22] MEDS ORDERED: BLOOD GLUCOSE MONITORING 1 DEV DEV FS SCH (07:30)
--- NOTE | 2018-01-22 07:30 | NUR ---
ENDORSED PT TO DAY SHIFT RN. PT IN STABLE CONDITION.
--- NOTE | 2018-01-22 07:35 | NUR ---
RECEIVED REPORT FROM FIELD TECHNICAL SPECIALIST NURSEHAMZAH RN. PT IS RESTING IN BED AAOX4, AMBULATORY, PT SKIN IS INTACT, PT HAS IV ON THE LEFT WRIST, PATENT, INTACT, FLUSHING WELL, NO S/S OF RESPIRATORY DISTRESS OR DISCOMFORT NOTED, DISCUSSED PLAN OF CARE WITH PT, PT VERBALIZED UNDERSTANDING, SAFETY/FALL PRECAUTIONS ARE IN PLACE, CALL LIGHT IS WITHIN REACH, WILL CONTINUE TO MONITOR.
--- NOTE | 2018-01-22 08:15 | NUR ---
DR. MAGUIRE SPEAKING TO PT AT BEDSIDE.
--- NOTE | 2018-01-22 08:35 | NUR ---
PATIENT STATING SHE WANTED TO HAVE HER IV REMOVED BECAUSE SHE WAS GOING TO BE LEAVING THE HOSPITAL. DR. MAGUIRE MADE AWARE.
--- NOTE | 2018-01-22 08:40 | NUR ---
PATIENT DECIDED TO LEAVE AMA. PT LEFT IN STABLE CONDITION, IV WAS REMOVED, CATHETER TIP INTACT, ID WRIST BAND REMOVED.
--- NOTE | 2018-01-22 08:43 | NUR ---
RECEIVED A CALL FROM DR. MAGUIRE STATING THE PATIENT DOESN'T WANT HIM TO SEE HER. I CALLED YARI FROM [facility] AND YARI SAID WHEN THE PATIENT IS NOT IN THE HOSPITAL SHE CAN SEE HER PCP BUT IN THE HOSPITAL SHE NEEDS TO BE UNDER THE HOSPITALIST. I WENT TO SEE THE PATIENT, BUT SHE HAD DECIDED TO SIGN OUT AMA. I TOLD HER WHAT YARI FROM [facility] SAID AND SHE SAID SHE WAS STILL LEAVING. I INFORMED DR. MAGUIRE.
[2018-01-22] MEDS ORDERED: ENOXAPARIN 40 MG/0.4 ML SYR SUBQ SCH (09:00)
[2018-01-22] MEDS ORDERED: GABAPENTIN 200 MG, GABAPENTIN 600 MG PO SCH ×2 (09:00)
[2018-01-22] MEDS ORDERED: GABAPENTIN 100 MG CAP PO SCH (09:00)
[2018-01-22] MEDS ORDERED: GABAPENTIN 300 MG CAP PO SCH (09:00)
[2018-01-22] MEDS ORDERED: CITALOPRAM 20 MG TAB PO SCH (21:00)
== END 2018-01-22 08:40 | disposition left against medical advice (07) | DRG 249 ==
LOC: MED 20:28 → MTU 01-22 00:57
PROVIDERS: ADMIT Hospitalist; ATTEND Hospitalist
DX: K52.9 Noninfective gastroenteritis and colitis, unspecified (principal); E43 Unspecified severe protein-calorie malnutrition; K31.84 Gastroparesis; E11.43 Type 2 diabetes mellitus with diabetic autonomic (poly)neuropathy; F32.9 Major depressive disorder, single episode, unspecified; E86.0 Dehydration; G47.00 Insomnia, unspecified; N20.0 Calculus of kidney; G89.29 Other chronic pain; Z53.21 Procedure and treatment not carried out due to patient leaving prior to being seen by health care provider; Z88.6 Allergy status to analgesic agent; Z88.1 Allergy status to other antibiotic agents; Z91.040 Latex allergy status; Z91.14 Patient's other noncompliance with medication regimen; Z79.4 Long term (current) use of insulin; Z79.899 Other long term (current) drug therapy; Z68.1 Body mass index [BMI] 19.9 or less, adult; Z88.0 Allergy status to penicillin
CPT/HCPCS: 36415; 80053; 81001; 81025; 82150; 82948; 83605; 83690; 84703; 85025; 87040; 87081; 96361; 96374; 96375; 99285; J1815; J1956; J2270; J2405; J3490; J7030; J7060

== ENCOUNTER 2018-01-27 01:25 | Emergency (ER) | payer OTHER ==
[~2018-01-27] VITALS: Ht 157.5 cm; Wt 40.6 kg
[2018-01-27 01:37] VITALS: BP 83/52
[2018-01-27] MEDS ORDERED: NACL 0.9% 2,000 ML IV ONE (01:45)
[2018-01-27 01:48] VITALS: BP 83/52
[2018-01-27] MEDS ORDERED: fentaNYL 0.05 MG/ML VIAL IVP ONE ×2 (02:05→02:50)
[2018-01-27 02:14] LABS: HEMATOCRIT 31.7 % (36-48); HEMOGLOBIN 9.8 g/dL (12.0-16.0); MEAN CORPUSCULAR HEMOGLOBIN 27 pg (27-31); MEAN CORPUSCULAR HGB CONC 31 g/dL (33-37); PLATELET COUNT (AUTO) 559 K/uL (140-450); RED CELL DISTRIBUTION WIDTH 15.4 % (11.6-13.7); WHITE BLOOD COUNT (AUTO) 12.4 K/uL (4.8-10.8)
[2018-01-27 02:22] LABS: APPEARANCE,URINE CLEAR (CLEAR); BILIRUBIN,URINE NEGATIVE (NEGATIVE); BLOOD, URINE 1+ (NEGATIVE); COLOR,URINE YELLOW (YELLOW); LEUKOCYTE ESTERASE ,URINE NEGATIVE (NEGATIVE); NITRITE, URINE NEGATIVE (NEGATIVE); PH,URINE 5.5 (5.0-9.0); UGLUCOSE 3+ (NEGATIVE)
[2018-01-27 02:30] LABS: BARBITURATE, URINE NEG. ng/ml (NEG <=200); BENZODIAZEPINE, URINE NEG. ng/mL (NEG <=200); CANNABINOID, URINE NEG. ng/mL (NEG <=50); COCAINE, URINE NEG. ng/mL (NEG <=300); OPIATE, URINE NEG. ng/mL (NEG <=2000); PHENCYCLIDINE SCREEN,URINE NEG. ng/mL (NEG <=25)
[2018-01-27 02:32] LABS: RBC,URINE 3-10 (FEW) /HPF (0-5); YEAST,URINE Rare /HPF (None Seen)
[2018-01-27 02:39] LABS: LYMPHOCYTES % (MANUAL) 12 % (20-46); MONOCYTES % (MANUAL) 6 % (5-12)
[2018-01-27 02:40] LABS: ACETAMINOPHEN < 0.5 ug/ml (10-30)
[2018-01-27 02:45] LABS: ACETONE, SERUM NEGATIVE (NEGATIVE)
[2018-01-27 02:49] LABS: ALBUMIN 2.9 g/dL (3.4-5.0); ANION GAP 22.1 (8-16); CARBON DIOXIDE 19.2 mmol/L (21-32); CREATININE 1.6 mg/dL (0.6-1.3); TOTAL BILIRUBIN 0.4 mg/dL (0.0-1.0)
[2018-01-27 03:00] LABS: POTASSIUM 2.3 mmol/L (3.5-5.1)
== END 2018-01-27 02:52 | disposition left against medical advice (07) ==
LOC: MED 01:25
DX: R11.2 Nausea with vomiting, unspecified (principal); R30.9 Painful micturition, unspecified; E11.9 Type 2 diabetes mellitus without complications; Z79.4 Long term (current) use of insulin; Z79.899 Other long term (current) drug therapy; Z88.0 Allergy status to penicillin; Z88.5 Allergy status to narcotic agent; Z88.8 Allergy status to other drugs, medicaments and biological substances; Z91.040 Latex allergy status
CPT/HCPCS: 36415; 71045; 80053; 80305; 81001; 82009; 82948; 83605; 83880; 84484; 85025; 85610; 85730; 87040; 87086; 93005; 96361; 96374; 99285; G0480; G0482; J3010; J7030

== ENCOUNTER 2018-01-27 16:22 | Inpatient (IN) | payer OTHER ==
[~2018-01-27] VITALS: Ht 157.5 cm; Wt 59.0 kg
[2018-01-27 16:32] VITALS: BP 123/70
[2018-01-27 17:24] LABS: ALBUMIN 3.1 g/dL (3.4-5.0); ANION GAP 14.6 (8-16); CARBON DIOXIDE 23.6 mmol/L (21-32); CREATININE 0.8 mg/dL (0.6-1.3); TOTAL BILIRUBIN 0.4 mg/dL (0.0-1.0)
[2018-01-27 17:26] LABS: POTASSIUM 2.2 mmol/L (3.5-5.1)
[2018-01-27] MEDS ORDERED: NACL 0.9% 1,000 ML IV ONE (17:45)
[2018-01-27] MEDS ORDERED: fentaNYL 0.05 MG/ML VIAL IVP ONE (17:45)
[2018-01-27] MEDS ORDERED: KCL 20 MEQ/WATER INJ PREMIX 200 ML IV ONE (17:45)
[2018-01-27] MEDS ORDERED: NACL 0.9% 1,000 ML IV SCH (18:06)
[2018-01-27] MEDS ORDERED: ACETAMINOPHEN 325 MG TAB PO PRN (18:10)
[2018-01-27] MEDS ORDERED: HYDROcodone/APAP 7.5/325 MG 1 TAB PO PRN ×2 (18:10→22:45)
[2018-01-27] MEDS ORDERED: ONDANSETRON 4 MG/2 ML VIAL IVP PRN (18:10)
[2018-01-27 18:34] LABS: BARBITURATE, URINE NEGATIVE ng/ml (NEG <=200); BENZODIAZEPINE, URINE NEGATIVE ng/mL (NEG <=200); CANNABINOID, URINE NEGATIVE ng/mL (NEG <=50); COCAINE, URINE NEGATIVE ng/mL (NEG <=300)
[2018-01-27 18:35] LABS: OPIATE, URINE NEGATIVE ng/mL (NEG <=2000); PHENCYCLIDINE SCREEN,URINE NEGATIVE ng/mL (NEG <=25)
[2018-01-27 18:37] LABS: BASOPHILS # (AUTO) 0.5 K/uL (0.00-0.22); BASOPHILS % (AUTO) 3.2 % (0.0-2.0); EOSINOPHILS % (AUTO) 0.2 % (0.0-4.0); HEMATOCRIT 35.3 % (36-48); LYMPHOCYTES # (AUTO) 1.3 K/uL (2.5-16.5); LYMPHOCYTES % (AUTO) 7.8 % (20.5-51.1); MEAN CORPUSCULAR HEMOGLOBIN 27 pg (27-31); MEAN CORPUSCULAR HGB CONC 31 g/dL (33-37); MEAN CORPUSCULAR VOLUME 86.9 fL (80-94); MONOCYTES # (AUTO) 0.6 K/uL (0.8-1.0); MONOCYTES % (AUTO) 3.5 % (1.7-9.3); NEUTROPHILS # (AUTO) 14.2 K/uL (1.8-7.7); NEUTROPHILS % (AUTO) 85.3 % (42.2-75.2); PLATELET COUNT (AUTO) 737 K/uL (140-450); RED BLOOD CELL COUNT(AUTO) 4.07 MIL/uL (4.20-5.40); RED CELL DISTRIBUTION WIDTH 14.9 % (11.6-13.7); WHITE BLOOD COUNT (AUTO) 16.6 K/uL (4.8-10.8)
[2018-01-27 18:38] LABS: BILIRUBIN,URINE NEGATIVE (NEGATIVE); BLOOD, URINE 2+ (NEGATIVE); LEUKOCYTE ESTERASE ,URINE NEGATIVE (NEGATIVE); NITRITE, URINE NEGATIVE (NEGATIVE); UGLUCOSE 3+ (NEGATIVE)
[2018-01-27 18:40] LABS: APPEARANCE,URINE CLEAR (CLEAR); COLOR,URINE STRAW (YELLOW)
[2018-01-27 18:49] LABS: PROTHROMBIN TIME 10.3 secs (10.8-13.4)
[2018-01-27] MEDS ORDERED: DEXTROSE 50% 50 ML SYR IVP PRN (18:55)
[2018-01-27] MEDS ORDERED: POTASSIUM CHLORIDE 40 MEQ, LIDOCAINE 1% 25 MG in NACL 0.9% 250 ML IV ONE (18:55)
[2018-01-27] MEDS ORDERED: INSULIN LISPRO SLIDING SCALE 100 UNITS/ML VIAL SUBQ PRN (18:55)
[2018-01-27 19:00] LABS: CHOL/HDL RATIO 2.1 (1-4.5); FREE T4 (FREE THYROXINE) 1.27 ng/dL (0.76-1.46); PHOSPHORUS 1.8 mg/dL (2.5-4.9); THYROID STIMULATING HORMONE 0.54 uIU/mL (0.34-3.74)
[2018-01-27 19:09] LABS: RBC,URINE 11-20 (MOD) /HPF (0-5); WBC,URINE 6-15 (FEW) /HPF (0-5)
[2018-01-27 19:10] VITALS: BP 111/74
[2018-01-27 19:10] LABS: YEAST,URINE Moderate /HPF (None Seen)
[2018-01-27] MEDS ORDERED: metroNIDAZOLE 500 MG TAB PO SCH ×2 (19:30→22:00)
[2018-01-27] MEDS ORDERED: INSULIN GLARGINE HUM REC ANLOG 55 UNIT SUBQ SCH (21:00)
[2018-01-27] MEDS ORDERED: CITALOPRAM 20 MG TAB PO SCH (21:00)
[2018-01-27] MEDS ORDERED: DOCUSATE SODIUM 100 MG GELCAP PO SCH (21:00)
[2018-01-27] MEDS ORDERED: BLOOD GLUCOSE MONITORING 1 DEV DEV FS SCH (21:00)
[2018-01-27] MEDS ORDERED: POTASSIUM CHL 40 MEQ/ D5-1/2NS 1,000 ML IV SCH (22:45)
[2018-01-27] MEDS ORDERED: POTASSIUM CHLORIDE 10 MEQ TABER PO SCH (23:00)
[2018-01-28 00:05] VITALS: BP 110/69
[2018-01-28 01:45] LABS: ANION GAP 13.3 (8-16); CARBON DIOXIDE 22.7 mmol/L (21-32); CREATININE 0.4 mg/dL (0.6-1.3)
[2018-01-28] MEDS ORDERED: POTASSIUM CHL 40 MEQ/ D5-1/2NS 1,000 ML IV SCH (02:20)
[2018-01-28] MEDS ORDERED: LORazepam 0.5 MG TAB PO SCH (02:30)
[2018-01-28] MEDS ORDERED: GABAPENTIN 300 MG CAP PO SCH (09:00)
[2018-01-28] MEDS ORDERED: LEVOFLOXACIN 500 MG TAB PO SCH (09:00)
[2018-01-28] MEDS ORDERED: LACTOBACILLUS RHAMNOSUS GG 1 EACH CAP PO SCH (09:00)
[2018-01-28] MEDS ORDERED: POTASSIUM CHLORIDE 10 MEQ TABER PO SCH ×3 (09:00)
[2018-01-28] MEDS ORDERED: INSULIN LISPRO 100 UNITS/ML VIAL SUBQ SCH (09:00)
[2018-01-29] MEDS ORDERED: LEVOFLOXACIN 500 MG TAB PO SCH (09:00)
== END 2018-01-28 03:35 | disposition left against medical advice (07) | DRG 720 ==
LOC: MED 16:22 → MTU 18:12
PROVIDERS: ADMIT Family Medicine; ATTEND Family Medicine
DX: A41.9 Sepsis, unspecified organism (principal); N17.0 Acute kidney failure with tubular necrosis; A04.72 Enterocolitis due to Clostridium difficile, not specified as recurrent; E11.65 Type 2 diabetes mellitus with hyperglycemia; B37.49 Other urogenital candidiasis; E87.6 Hypokalemia; N20.0 Calculus of kidney; F32.9 Major depressive disorder, single episode, unspecified; R80.9 Proteinuria, unspecified; I50.9 Heart failure, unspecified; Z53.21 Procedure and treatment not carried out due to patient leaving prior to being seen by health care provider; Z88.0 Allergy status to penicillin; Z88.6 Allergy status to analgesic agent; Z91.041 Radiographic dye allergy status; Z91.040 Latex allergy status; Z83.3 Family history of diabetes mellitus; Z82.49 Family history of ischemic heart disease and other diseases of the circulatory system; Z87.891 Personal history of nicotine dependence; Z56.0 Unemployment, unspecified; Z79.4 Long term (current) use of insulin
CPT/HCPCS: 36415; 80048; 80053; 80305; 81001; 81025; 82150; 82948; 83036; 83690; 83735; 83880; 84100; 84439; 84443; 84484; 85025; 85610; 85730; 87081; 93925; 93970; 96374; 99285; J1815; J2001; J3010; J3480; J7030; Q0092

== ENCOUNTER 2018-02-02 15:56 | Emergency (ER) | payer OTHER ==
[~2018-02-02] VITALS: Ht 157.5 cm; Wt 44.9 kg
[2018-02-02 15:58] VITALS: BP 100/62
--- NOTE | 2018-02-02 16:09 | NUR ---
PATIENT AMBULATED TO BED 2.
--- NOTE | 2018-02-02 16:47 | NUR ---
42 YO BIB SELF W/ C/O BILATRAL FLANK PAIN 9/10 THAT IS SHARP AND RADIATES UP TO HER RIBS X 2 DAYS. PT A&O X 4. GCS 15. CMS INTACT. AMBULATORY W/ STEADY GAIT. PT ABD SOFT, NON-TENDER. PT DENIES ANY DISCOMFORT WHEN URINATING AT THIS TIME. PT DENIES N/V AT THIS TIME. RESPIRATIONS EVEN AND UNLABORED AT THIS TIME. LUNG SOUNDS CLEAR BILATERALLY. ER MD CUEVAS NOTIFIED OF PT STATUS. PT NEEDS MET AT THIS TIME. WILL CONTINUE TO MONITOR.
[2018-02-02] MEDS ORDERED: INSULIN REGULAR, HUMAN 100 UNIT/ML VIAL SUBQ ONE (16:50)
[2018-02-02] MEDS ORDERED: diphenhydrAMINE 50 MG/ML VIAL IM ONE (16:50)
[2018-02-02] MEDS ORDERED: MORPHINE SULFATE 2 MG/ML SYR IM ONE (16:50)
[2018-02-02] MEDS ORDERED: CLINDAMYCIN 600 MG/4 ML VIAL IM ONE (16:50)
[2018-02-02] MEDS ORDERED: MORPHINE SULFATE 4 MG/ML SYR ONE (17:05)
[2018-02-02 17:53] VITALS: BP 100/62
--- NOTE | 2018-02-02 17:53 | NUR ---
Patient discharged with v/s stable. Written and verbal after care instructions given and explained. Patient alert, oriented and verbalized understanding of instructions. Ambulatory with steady gait. All questions addressed prior to discharge. ID band removed. Patient advised to follow up with PMD. Rx of Doxycycline & Fioricet given. Patient educated on indication of medication including possible reaction and side effects. Opportunity to ask questions provided and answered.
== END 2018-02-02 17:53 | disposition home or self-care (01) ==
LOC: MED 15:56
DX: L73.9 Follicular disorder, unspecified (principal); L73.1 Pseudofolliculitis barbae; J45.909 Unspecified asthma, uncomplicated; E11.9 Type 2 diabetes mellitus without complications; I10 Essential (primary) hypertension; Z79.899 Other long term (current) drug therapy; Z79.4 Long term (current) use of insulin; Z88.0 Allergy status to penicillin; Z88.8 Allergy status to other drugs, medicaments and biological substances; Z91.040 Latex allergy status
CPT/HCPCS: 82948; 96372; 99284; J1200; J1815; J2270; J3490

== ENCOUNTER 2018-02-03 17:52 | Inpatient (IN) | payer OTHER ==
[~2018-02-03] VITALS: Ht 157.5 cm; Wt 48.5 kg
[2018-02-03 18:24] VITALS: BP 101/65
--- NOTE | 2018-02-03 18:30 | NUR ---
Patient ambulated to bed 2. RN evaluating patient at bedside.
--- NOTE | 2018-02-03 18:35 | NUR ---
PATIENT PRESENTS TO ED WITH C/O OF L LEG PAIN S/P FALL LAST NIGHT . PT STATES" I SLIPPED AND FELL WHEN I GOT UP TO THE KITCHEN AND MY LEG STARTED HURTING AND GOT THIS BUMP". DENIES N/V/D; SKIN IS PINK/WARM/DRY; AAOX4 WITH EVEN AND STEADY GAIT; ; PT DENIES ANY FEVER, CP, SOB, OR COUGH AT THIS TIME; PATIENT STATES PAIN OF 9/10 AT THIS TIME NON RADIATING IN L LEG ; VSS; PATIENT POSITIONED FOR COMFORT; HOB ELEVATED; BEDRAILS UP X2; BED DOWN. ER MD MADE AWARE OF PT STATUS.
[2018-02-03] MEDS ORDERED: NACL 0.9% 1,000 ML IV ONE ×2 (18:45→20:15)
--- NOTE | 2018-02-03 19:12 | NUR ---
Pt report given to ALBA JOHNSON . Transfer of care at this time.
[2018-02-03 19:18] LABS: BASOPHILS % (AUTO) 0.4 % (0.0-2.0); EOSINOPHILS % (AUTO) 0.5 % (0.0-4.0); HEMATOCRIT 32.7 % (36-48); LYMPHOCYTES # (AUTO) 1.8 K/uL (2.5-16.5); LYMPHOCYTES % (AUTO) 26.7 % (20.5-51.1); MEAN CORPUSCULAR HEMOGLOBIN 28 pg (27-31); MEAN CORPUSCULAR HGB CONC 31 g/dL (33-37); MEAN CORPUSCULAR VOLUME 90.6 fL (80-94); MONOCYTES # (AUTO) 0.5 K/uL (0.8-1.0); MONOCYTES % (AUTO) 7.3 % (1.7-9.3); NEUTROPHILS # (AUTO) 4.3 K/uL (1.8-7.7); NEUTROPHILS % (AUTO) 65.1 % (42.2-75.2); PLATELET COUNT (AUTO) 418 K/uL (140-450); RED BLOOD CELL COUNT(AUTO) 3.61 MIL/uL (4.20-5.40); RED CELL DISTRIBUTION WIDTH 16.9 % (11.6-13.7); WHITE BLOOD COUNT (AUTO) 6.7 K/uL (4.8-10.8)
[2018-02-03] MEDS ORDERED: MORPHINE SULFATE 4 MG/ML SYR IVP ONE ×2 (19:20→20:15)
[2018-02-03 19:32] LABS: ALBUMIN 2.7 g/dL (3.4-5.0); ANION GAP 12.8 (8-16); CARBON DIOXIDE 27.6 mmol/L (21-32); CREATININE 0.9 mg/dL (0.6-1.3); POTASSIUM 4.4 mmol/L (3.5-5.1); TOTAL BILIRUBIN 0.2 mg/dL (0.0-1.0)
[2018-02-03] MEDS ORDERED: INSULIN REGULAR, HUMAN 100 UNIT/ML VIAL IVP ONE (19:50)
[2018-02-03] MEDS ORDERED: INSULIN REGULAR, HUMAN 100 UNIT in NACL 0.9% 100 ML IV ONE ×2 (19:50)
[2018-02-03] MEDS ORDERED: POTASSIUM CHLORIDE 20% 40 MEQ/15 ML UDC PO ONE (20:10)
[2018-02-03 20:11] LABS: APPEARANCE,URINE CLEAR (CLEAR); BILIRUBIN,URINE NEGATIVE (NEGATIVE); BLOOD, URINE TRACE-I (NEGATIVE); LEUKOCYTE ESTERASE ,URINE NEGATIVE (NEGATIVE); NITRITE, URINE NEGATIVE (NEGATIVE); UGLUCOSE 3+ (NEGATIVE)
--- NOTE | 2018-02-03 20:15 | NUR ---
PATIENT RESTING AT THIS TIME. NO SIGNS OF DISTRESS.
[2018-02-03 20:20] LABS: COLOR,URINE STRAW (YELLOW); RBC,URINE 0-5 (RARE) /HPF (0-5); WBC,URINE NONE SEEN /HPF (0-5)
[2018-02-03] MEDS ORDERED: ACETAMINOPHEN 325 MG TAB PO PRN (20:30)
[2018-02-03] MEDS ORDERED: ONDANSETRON 4 MG/2 ML VIAL IVP PRN (20:30)
[2018-02-03] MEDS ORDERED: DEXTROSE 50% 50 ML SYR IVP PRN (20:30)
--- NOTE | 2018-02-03 20:52 | NUR ---
Patient will be admitted to care of DR. MAGUIRE. Admited to ICU. Will go to room 5. Belongings list completed. Report to MADY WILLIS.
[2018-02-03] MEDS: BLOOD GLUCOSE MONITORING 1 DEV DEV FS SCH ×3 (21:00→23:23)
[2018-02-03 21:05] VITALS: BP 103/71
--- NOTE | 2018-02-03 21:10 | NUR ---
PT CAME FROM ER. RECEIVED REPORT FROM MY CHARGE NURSE, ALBA EARL. INITIAL ASSESSMENT COMPLETED. IV AT LEFT FOREARM, PATENT, INTACT AT THIS TIME. ON INSULIN DRIP. NO SIGNS OF DISTRESS. BED IN LOW POSITION, SAFETY MEASURE ENSURE. CALL LIGHT WITHIN REACH. WILL CONTACT PRIMARY PHYSICIAN FOR ORDERS.
[2018-02-03] MEDS ORDERED: PNEUMOCOCCAL VACCINE 23 MCG/0.5 ML VIAL IMVAC SCH ×2 (21:45→22:00)
[2018-02-03] MEDS ORDERED: INSULIN REGULAR, HUMAN 100 UNIT in NACL 0.9% 100 ML IV SCH ×2 (21:45)
[2018-02-03 22:00] VITALS: BP 101/63
[2018-02-03] MEDS ORDERED: ZOLPIDEM 5 MG TAB PO PRN (22:10)
--- NOTE | 2018-02-03 22:10 | NUR ---
CALLED DR. MAGUIRE AND UPDATED WITH PATIENT'S CONDITION. WITH NEW ORDERS MADE.
--- NOTE | 2018-02-03 23:10 | NUR ---
PT REFUSED PNEUMONIA VACCINE AT THIS TIME AND SAID SHE WILL LET ME KNOW IF SHE WANTS TO TAKE IT.
--- NOTE | 2018-02-03 23:10 | NUR ---
PT ASKED FOR SOMETHING TO EAT. RN NETWORK ANNOUNCER GAVE HER SNACKS. WILL CONTINUE TO MONITOR.
[2018-02-03] MEDS: HYDROcodone/APAP 7.5/325 MG 1 TAB PO PRN (23:16)
[2018-02-04] VITALS: BP 108/68
[2018-02-04] MEDS: BLOOD GLUCOSE MONITORING 1 DEV DEV FS SCH ×7 (00:25→11:30)
[2018-02-04] MEDS: MORPHINE SULFATE 4 MG/ML SYR IVP PRN ×3 (00:32→10:00)
[2018-02-04] MEDS: NACL 0.9% 1,000 ML IV SCH ×3 (00:51→12:28)
[2018-02-04 02:00] VITALS: BP 101/59
--- NOTE | 2018-02-04 02:10 | NUR ---
RESTING AT THIS TIME. NO SIGNS OF DISTRESS. WILL CONTINUE TO MONITOR.
--- NOTE | 2018-02-04 02:36 | NUR ---
PT REFUSED TO WEAR GOWN. AND PREFER HER OWN CLOTHES.
[2018-02-04 02:40] LABS: FREE T4 (FREE THYROXINE) 1.44 ng/dL (0.76-1.46); THYROID STIMULATING HORMONE 0.51 uIU/mL (0.34-3.74)
[2018-02-04 02:45] LABS: ACETONE, SERUM NEGATIVE (NEGATIVE)
--- NOTE | 2018-02-04 03:15 | NUR ---
PATIENT KEEPS CALLING NURSE EVERY NOW ANG THEN WITH SO MANY REQUEST, TO FIX HER BED, TO GIVE HER SNACK. SHE ALSO REMOVE HER CHEST LEADS, BP CUFF AND PULSE OXIMETER. PT REORIENTED ABOUT THE IMPORTANCE OF MONITORING HER IN ICU. PT VERBALIZED INSTRUCTION AT THIS TIME.
[2018-02-04 04:00] VITALS: BP 105/70
--- NOTE | 2018-02-04 04:32 | NUR ---
INSULIN DRIP DISCONTINUED, BSL 82, DR. MAGUIRE NOTIFIED WITH ORDERS MADE
[2018-02-04] MEDS ORDERED: INSULIN LISPRO SLIDING SCALE 100 UNITS/ML VIAL SUBQ PRN (04:55)
[2018-02-04 05:25] LABS: BASOPHILS % (AUTO) 0.4 % (0.0-2.0); EOSINOPHILS # (AUTO) 0.1 K/uL (0-0.4); EOSINOPHILS % (AUTO) 1.4 % (0.0-4.0); HEMATOCRIT 28.2 % (36-48); HEMOGLOBIN 8.8 g/dL (12.0-16.0); LYMPHOCYTES # (AUTO) 3.9 K/uL (2.5-16.5); LYMPHOCYTES % (AUTO) 46.9 % (20.5-51.1); MEAN CORPUSCULAR HEMOGLOBIN 28 pg (27-31); MEAN CORPUSCULAR HGB CONC 31 g/dL (33-37); MEAN CORPUSCULAR VOLUME 88.4 fL (80-94); MONOCYTES # (AUTO) 0.5 K/uL (0.8-1.0); MONOCYTES % (AUTO) 6.5 % (1.7-9.3); NEUTROPHILS # (AUTO) 3.7 K/uL (1.8-7.7); NEUTROPHILS % (AUTO) 44.8 % (42.2-75.2); PLATELET COUNT (AUTO) 375 K/uL (140-450); RED CELL DISTRIBUTION WIDTH 16.4 % (11.6-13.7); WHITE BLOOD COUNT (AUTO) 8.3 K/uL (4.8-10.8)
--- NOTE | 2018-02-04 05:44 | NUR ---
PT COMPLAINT OF PAIN IN THE IV SITE. CHECKED PATENCY, PATENT AND INTACT AT THIS TIME. CHARGE NURSE MADY TRIED TO REINSERT ANOTHER IV LINE, RIGHT AC 20G, WITH GOOD BLOOD RETURN, PATENT, INTACT. BUT PATIENT SAID IT'S PAINFUL AND WANTS IT REMOVED. IV ACCESS AT RIGHT 20G REMOVED AFTER INSERTION. PREVIOUS IV SITE LEFT FOREARM, STILL INTACT, PATENT. WILL CONTINUE TO MONITOR.
[2018-02-04 06:00] VITALS: BP 118/51
[2018-02-04 06:12] LABS: MAGNESIUM 1.7 mg/dL (1.8-2.4); PHOSPHORUS 1.8 mg/dL (2.5-4.9)
[2018-02-04 06:14] LABS: ALBUMIN 2.5 g/dL (3.4-5.0); ANION GAP 12.1 (8-16); CARBON DIOXIDE 26.7 mmol/L (21-32); CREATININE 0.5 mg/dL (0.6-1.3); POTASSIUM 3.8 mmol/L (3.5-5.1); TOTAL BILIRUBIN 0.1 mg/dL (0.0-1.0)
[2018-02-04] MEDS: HYDROcodone/APAP 7.5/325 MG 1 TAB PO PRN (07:05)
--- NOTE | 2018-02-04 07:30 | NUR ---
REPORT GIVEN TO ALBA BANSAL FOR CONTINUITY OF CARE.
--- NOTE | 2018-02-04 07:30 | NUR ---
RECEIVED REPORT FROM NOC SHIFT RN. PT A/O X4, VERBALLY RESPONSIVE. SR ON MONITOR. SKIN DRY AND WARM TO TOUCH. HEALED WOUND SCAR ON HEAD AT LEFT SIDE. ACCORDING TO PT THERE WAS BOILS ON HEAD A MONTH AGO NOW SCARS ONLY. AFEBRILE. LUNGS SOUND CLEAR ON AUSCULTATION. PERIPHERAL LINE NOTED ON LEFT FOREARM 20 G, INTACT. NS RUNNING AT 125 ML/HR. ABDOMEN SOFT, ROUND AND NON-TENDER. ACTIVE BOWEL SOUND IN ALL FOUR QUADRANTS. SKIN INTACT. SCABS AND TATOOS NOTED ON RIGHT LOWER EXTREMITIES. CALL LIGHT WITHIN REACH, BED IN LOW POSITION, LOCKED. WILL CONTINUE TO MONITOR.
--- NOTE | 2018-02-04 07:43 | NUR ---
PT EATING BREAKFAST AT THIS TIME.
[2018-02-04 08:00] VITALS: BP 109/72
--- NOTE | 2018-02-04 08:43 | NUR ---
PT SEEN BY DR. SHEPHERD. WILL FOLLOW UP ON ORDER.
[2018-02-04] MEDS ORDERED: ENOXAPARIN 30 MG/0.3 ML SYR SUBQ SCH (09:00)
[2018-02-04] MEDS ORDERED: GABAPENTIN 100 MG CAP PO SCH (09:00)
[2018-02-04] MEDS ORDERED: MAG SULF 2000 MG/WATER PREMIX 50 ML IV SCH (09:00)
[2018-02-04] MEDS: GABAPENTIN 200 MG, GABAPENTIN 600 MG PO SCH ×4 (09:00→09:58)
[2018-02-04] MEDS ORDERED: PROBIOTIC SCREEN 1 EA MISC MC PRN (09:45)
--- NOTE | 2018-02-04 10:34 | NUR ---
PATIENT HAS BEEN SCREENED AND CATEGORIZED HIGH NUTRITION RISK. PATIENT WILL BE SEEN WITHIN 1-2 DAYS OF ADMISSION. 02/04/18 - 02/05/[address]
--- NOTE | 2018-02-04 10:58 | NUR ---
PT TOOK OUT IV LINE OF LEFT ARM WHERE IV MAGNESIUM WAS INFUSING. ASSIGNED NURSE EXPLAINED PT ABOUT THE NEED OF NEW IV LINE FOR IV MEDICATION MAGNESIUM AND CALCIUM BECAUSE OF LOW MG AND CALCIUM. PT VERBALIZED UNDERSTANDING BUT STILL DOESNOT WANT US ASSIGNED NURSE NAD CHARGE NURSE TO START NEW LINE IN. EXPLAIED ABOUT THE COMPLICATION OF NOT ADMINISTERED MEDICATION BUT PT INSISTING TO GO OUT AND REFUSING MEDICATION. TAKING OUT BP CUFF AND LEADS NOT LISTENING TO ASSIGNED NURSE AND CHARGE NURSE. PT ON CONTINUOUS MONITORING.
[2018-02-04 11:00] VITALS: BP 102/79
[2018-02-04] MEDS ORDERED: CALCIUM GLUCONATE 10% 1,000 MG in NACL 0.9% 50 ML IV SCH (11:00)
--- NOTE | 2018-02-04 11:10 | NUR ---
CALLED DR. SHEPHERD NOTIFIED ABOUT PT'S BEHAVIOR AND REFUSAL OF INSERTING NEW IV LINE AND MEDICATION AND PT WANTS TO GO AMA. PT SIGNED PAPERS FOR REFUSING TREATMENT AND AMA PAPER. SAID OKAY TO SEND AMA. PT WAS EXPLAINED ABOUT AMA AND RISK AND BENIFITS OF MEDICATION. STILL WANTS TO GO AMA.
--- NOTE | 2018-02-04 11:11 | NUR ---
PT LEFT ICU TAKING ALL HER BELONGINGS. HANDED HER CANE.
[2018-02-04] MEDS ORDERED: CALCIUM GLUCONATE 10% 1,000 MG in NACL 0.9% 100 ML IV SCH (11:15)
--- NOTE | 2018-02-04 12:14 | NUR ---
CM NOTE INITIAL REVIEW FAXED TO [facility] [phone] YARI # [phone]
--- NOTE | 2018-02-04 12:29 | NUR ---
FNS REFERRAL RECEIVED ON 02/04 FOR UNCONTROLLED DM. PT LEFT AMA PRIOR TO RD VISIT. KHADIJAH CHAN RD
--- NOTE | 2018-02-04 12:57 | NUR ---
CALLED AND NOTIFIED DR. CAMPOS THAT PT BP STILL HIGH 172/96. WILL FOLLOW UP ON ORDER. Addendum: 02/04/18 at 1300 by Myriam Kiser RN WRONG CHARTING
[2018-02-04] MEDS ORDERED: CITALOPRAM 20 MG TAB PO SCH (21:00)
== END 2018-02-04 11:11 | disposition left against medical advice (07) | DRG 420 ==
LOC: MED 17:52 → MIC 20:38
PROVIDERS: ADMIT Hospitalist; ATTEND Hospitalist
DX: E11.10 Type 2 diabetes mellitus with ketoacidosis without coma (principal); F11.20 Opioid dependence, uncomplicated; I10 Essential (primary) hypertension; E11.00 Type 2 diabetes mellitus with hyperosmolarity without nonketotic hyperglycemic-hyperosmolar coma (NKHHC); E87.6 Hypokalemia; J45.909 Unspecified asthma, uncomplicated; D64.9 Anemia, unspecified; L73.8 Other specified follicular disorders; G89.29 Other chronic pain; M54.5 Low back pain; E11.65 Type 2 diabetes mellitus with hyperglycemia; Z53.21 Procedure and treatment not carried out due to patient leaving prior to being seen by health care provider; M79.7 Fibromyalgia; E05.90 Thyrotoxicosis, unspecified without thyrotoxic crisis or storm; Z87.891 Personal history of nicotine dependence; Z91.19 Patient's noncompliance with other medical treatment and regimen; Z28.21 Immunization not carried out because of patient refusal; Z68.1 Body mass index [BMI] 19.9 or less, adult; Z88.0 Allergy status to penicillin; Z88.8 Allergy status to other drugs, medicaments and biological substances; Z91.041 Radiographic dye allergy status; Z91.040 Latex allergy status; E87.1 Hypo-osmolality and hyponatremia; Z79.4 Long term (current) use of insulin
CPT/HCPCS: 36415; 73562; 73590; 80053; 81001; 82009; 82948; 83036; 83605; 83735; 84100; 84439; 84443; 85025; 87040; 87081; 90732; 96361; 96374; 99285; J0610; J1650; J1815; J2270; J3475; J7030; Q0092

== ENCOUNTER 2018-02-13 01:02 | Emergency (ER) | payer OTHER ==
[~2018-02-13] VITALS: Ht 157.5 cm; Wt 54.4 kg
[2018-02-13 01:05] VITALS: BP 108/71
[2018-02-13] MEDS ORDERED: HYDROcodone/APAP 5/325 MG 1 TAB TAB PO ONE ×2 (01:25→01:45)
[2018-02-13] MEDS ORDERED: ONDANSETRON 4 MG ODT PO ONE (01:25)
== END 2018-02-13 02:25 | disposition left against medical advice (07) ==
LOC: MED 01:02
DX: R07.89 Other chest pain (principal); J45.909 Unspecified asthma, uncomplicated; E11.9 Type 2 diabetes mellitus without complications; I10 Essential (primary) hypertension; F17.200 Nicotine dependence, unspecified, uncomplicated; Z88.0 Allergy status to penicillin; Z88.6 Allergy status to analgesic agent; Z91.040 Latex allergy status
CPT/HCPCS: 71250; 81002; 81025; 93005; 99284; S0119

== ENCOUNTER 2018-02-27 15:40 | Emergency (ER) | payer OTHER ==
[~2018-02-27] VITALS: Ht 157.5 cm; Wt 45.4 kg
[2018-02-27 15:48] VITALS: BP 97/62
--- NOTE | 2018-02-27 16:04 | NUR ---
BS TOO HIGH TO READ, ER MD DR CUEVAS MADE AWARE, OK BACK TO LOBBY, IS DISCHARGING PATIENTS RIGHT NOW, PT WILL BE BROUGHT BACK SOON.
--- NOTE | 2018-02-27 16:40 | NUR ---
PT AMBULATED TO ER BED 01
--- NOTE | 2018-02-27 17:10 | NUR ---
PT. CAME INTO ED W/ C/O PAIN IN TAILBONE AFTER HAVING A FALL LAST NIGHT. PT. STATES " I WAS AT HOME AND THEIR WAS SOME WATER ON THE FLOOR, AND I SLIPPED AND LANDED ON MY TAIBONE , I DID NOT HIT MY HEAD". PT. AAOX4, RR EVEN AND UNLABORED, PT DENIES SOB, DENIES CHEST PAIN , LS: CLEAR, NO BRUISING NOTED IN BACK. DR. CUEVAS NOTIFIED. WILL CONTINUE TO MONITOR
[2018-02-27] MEDS ORDERED: HYDROmorphone 1 MG/ML AMP IVP ONE (17:35)
[2018-02-27] MEDS ORDERED: HYDROmorphone PFS 2 MG/ML SYR IM ONE (17:40)
--- NOTE | 2018-02-27 17:46 | NUR ---
REPEAT BS-CRITICAL HIGH, DR CUEVAS INFORMED. NO IV FLUIDS OR INSULIN ORDERED AT THIS TIME.
[2018-02-27] MEDS ORDERED: INSULIN REGULAR, HUMAN 100 UNIT/ML VIAL SUBQ ONE (18:10)
--- NOTE | 2018-02-27 18:39 | NUR ---
REPEAT BS, CRITICAL HIGH, DR CUEVAS INFORMED, MEDCIATED WITH INSULIN 10 UNITS SQ.
--- NOTE | 2018-02-27 18:53 | NUR ---
ORDER FOR DISCHARGE, AWAITING REPEAT BS. CN INFORMED.
--- NOTE | 2018-02-27 19:15 | NUR ---
Pt report given to ALBA AKINS . Transfer of care at this time.
[2018-02-27 19:43] VITALS: BP 128/72
--- NOTE | 2018-02-27 19:43 | NUR ---
IV removed, catheter intact and site benign. Applied folded 4x4 gauze and tape to stop bleeding. Patient discharged with v/s stable. Written and verbal after care instructions given and explained. Patient alert, oriented and verbalized understanding of instructions. Ambulatory with steady gait. All questions addressed prior to discharge. ID band removed. Patient advised to follow up with PMD. Rx of VISTARIL given. Patient educated on indication of medication including possible reaction and side effects. Opportunity to ask questions provided and answered.
== END 2018-02-27 19:43 | disposition home or self-care (01) ==
LOC: MED 15:40
DX: E11.40 Type 2 diabetes mellitus with diabetic neuropathy, unspecified (principal); E11.65 Type 2 diabetes mellitus with hyperglycemia; J45.909 Unspecified asthma, uncomplicated; I10 Essential (primary) hypertension; E03.9 Hypothyroidism, unspecified; Z79.899 Other long term (current) drug therapy; Z88.0 Allergy status to penicillin; Z79.4 Long term (current) use of insulin; Z88.8 Allergy status to other drugs, medicaments and biological substances; Z91.040 Latex allergy status
CPT/HCPCS: 81002; 81025; 96372; 99283; J1170; J1815

== ENCOUNTER 2018-04-30 17:53 | Emergency (ER) | payer OTHER ==
[~2018-04-30] VITALS: Ht 157.5 cm; Wt 42.4 kg
[2018-04-30 18:08] VITALS: BP 114/69
--- NOTE | 2018-04-30 18:15 | NUR ---
PT WHEEL CHAIR ASSISTED TO BED 4, REPORT GIVEN TO ALBA SOUTH
--- NOTE | 2018-04-30 18:20 | NUR ---
42 F BIB SIGNIFICANT OTHER WITH C/O PAIN ON THE COCYX AREA, BACK, BL LEG S/P SLIP/FALL "ON WATER" LAST NIGHT, DENIES ALOC; DERMATITIS ON RT FOOT WITH ITCHINESS AND INTERMITTENT SHARP PAIN; PT IS AOX4 TO PERSON PLACE SITUATION AND TIME. RR ARE EVEN AND UNLABORED. PATIENT CHANGED INTO GOWN AWAITING ER MD GALLEGO. ALL NEEDS MET AT THIS TIME. WILL CONTINUE TO MONITOR.
[2018-04-30] MEDS ORDERED: NACL 0.9% 500 ML IV ONE ×2 (18:37)
[2018-04-30] MEDS ORDERED: fentaNYL 0.05 MG/ML VIAL IVP ONE (18:40)
--- NOTE | 2018-04-30 18:50 | NUR ---
PT TO CT VIA ULYSSES ACCOMPANIED BY POLICE BOOKING OFFICER
[2018-04-30 18:52] LABS: BASOPHILS # (AUTO) 0.3 K/uL (0.00-0.22); BASOPHILS % (AUTO) 2.8 % (0.0-2.0); EOSINOPHILS % (AUTO) 0.4 % (0.0-4.0); HEMOGLOBIN 9.1 g/dL (12.0-16.0); LYMPHOCYTES # (AUTO) 1.8 K/uL (2.5-16.5); LYMPHOCYTES % (AUTO) 17.3 % (20.5-51.1); MEAN CORPUSCULAR HEMOGLOBIN 23 pg (27-31); MEAN CORPUSCULAR HGB CONC 30 g/dL (33-37); MEAN CORPUSCULAR VOLUME 74.6 fL (80-94); MONOCYTES # (AUTO) 0.4 K/uL (0.8-1.0); NEUTROPHILS % (AUTO) 75.5 % (42.2-75.2); PLATELET COUNT (AUTO) 745 K/uL (140-450); RED BLOOD CELL COUNT(AUTO) 4.03 MIL/uL (4.20-5.40); RED CELL DISTRIBUTION WIDTH 18.9 % (11.6-13.7); WHITE BLOOD COUNT (AUTO) 10.6 K/uL (4.8-10.8)
[2018-04-30 19:01] LABS: ACETONE, SERUM NEGATIVE (NEGATIVE)
[2018-04-30 19:03] LABS: ANION GAP 12.5 (8-16); CARBON DIOXIDE 25.8 mmol/L (21-32); CHLORIDE 92 mmol/L (98-107); GFR ARICAN-AMERICAN 78 mL/min (>90); POTASSIUM 5.3 mmol/L (3.5-5.1); SODIUM SERUM 125 mmol/L (136-145); UREA NITROGEN, BLOOD 18 mg/dL (7-18)
[2018-04-30 19:05] LABS: GLUCOSE 891 mg/dL (74-106)
[2018-04-30 19:06] LABS: ALBUMIN 2.8 g/dL (3.4-5.0); ASPARTATE AMINOTRANSFERASE 6 U/L (15-37); TOTAL BILIRUBIN 0.1 mg/dL (0.0-1.0)
--- NOTE | 2018-04-30 19:19 | NUR ---
Pt report given to Berry WILLIS. Transfer of care at this time.
[2018-04-30] MEDS ORDERED: INSULIN REGULAR, HUMAN 100 UNIT/ML VIAL SUBQ ONE ×2 (19:20→20:50)
--- NOTE | 2018-04-30 19:30 | NUR ---
RECEIVED REPORT FROM AM NURSE. PT RESTING IN BED, RR EVEN AND UNLABORED, VSS. PT REPORTS SLIGHTLY DECREASED LUMBAR PAIN 06/07, REQUESTING FOR MORE PAIN MED. MADE DR ADRIAN THOMAS, TO SEE PT.
[2018-04-30] MEDS ORDERED: MORPHINE SULFATE 4 MG/ML SYR IVP ONE (20:10)
[2018-04-30] MEDS ORDERED: NACL 0.9% 1,000 ML IV ONE (20:10)
--- NOTE | 2018-04-30 20:48 | NUR ---
PT REPORTS DECREASED LUMBAR PAIN 5/10 AT THIS TIME. BLOOD SUGAR 570. PT REQUESTING FOR RX PAIN MEDS DUE TO PT SEEING PCP ON 05/02 BUT FEELS THAT SHE NEEDS MORE FOR HER LUMBAR INJURY. MADE DR CAMPBELL AWARE.
--- NOTE | 2018-04-30 21:49 | NUR ---
IV removed, catheter intact and site benign. Applied folded 4x4 gauze and tape to stop bleeding.
[2018-04-30 22:20] VITALS: BP 105/65
--- NOTE | 2018-04-30 22:20 | NUR ---
Patient discharged with v/s stable. Written and verbal after care instructions given and explained. Patient alert, oriented and verbalized understanding of instructions. Ambulatory with steady gait. All questions addressed prior to discharge. ID band removed. Patient advised to follow up with PMD. Rx of IBUPROFEN 800MG given. Patient educated on indication of medication including possible reaction and side effects. Opportunity to ask questions provided and answered.
== END 2018-04-30 22:20 | disposition home or self-care (01) ==
LOC: MED 17:53
DX: S39.92XA Unspecified injury of lower back, initial encounter (principal); E11.65 Type 2 diabetes mellitus with hyperglycemia; E87.6 Hypokalemia; R74.0 Nonspecific elevation of levels of transaminase and lactic acid dehydrogenase [LDH]; E87.1 Hypo-osmolality and hyponatremia; I10 Essential (primary) hypertension; E07.9 Disorder of thyroid, unspecified; F17.210 Nicotine dependence, cigarettes, uncomplicated; Z88.0 Allergy status to penicillin; Z91.041 Radiographic dye allergy status; Z88.6 Allergy status to analgesic agent; Z91.040 Latex allergy status; Z79.4 Long term (current) use of insulin; W01.0XXA Fall on same level from slipping, tripping and stumbling without subsequent striking against object, initial encounter; Y93.89 Activity, other specified; Y99.8 Other external cause status; Y92.89 Other specified places as the place of occurrence of the external cause
CPT/HCPCS: 36415; 36600; 72131; 80053; 82009; 82803; 85025; 96361; 96372; 96374; 96375; 99285; J1815; J2270; J3010; J7030

== ENCOUNTER 2018-05-15 15:17 | Emergency (ER) | payer OTHER ==
[~2018-05-15] VITALS: Ht 157.5 cm; Wt 51.7 kg
[2018-05-15 15:30] VITALS: BP 106/67
[2018-05-15] MEDS ORDERED: diphenhydrAMINE 50 MG/ML VIAL IM ONE (16:15)
[2018-05-15] MEDS ORDERED: PROCHLORPERAZINE 10 MG/2 ML VIAL IM ONE (16:15)
[2018-05-15] MEDS ORDERED: traMADol 50 MG TAB PO ONE (16:15)
[2018-05-15 16:56] VITALS: BP 106/66
== END 2018-05-15 16:55 | disposition home or self-care (01) ==
LOC: MED 15:17
DX: L03.115 Cellulitis of right lower limb (principal); K21.9 Gastro-esophageal reflux disease without esophagitis; E11.9 Type 2 diabetes mellitus without complications; I10 Essential (primary) hypertension; E05.90 Thyrotoxicosis, unspecified without thyrotoxic crisis or storm; Z79.899 Other long term (current) drug therapy; Z79.4 Long term (current) use of insulin; Z88.0 Allergy status to penicillin; Z88.8 Allergy status to other drugs, medicaments and biological substances; Z91.040 Latex allergy status
CPT/HCPCS: 82948; 99283

== ENCOUNTER 2018-08-06 23:01 | Emergency (ER) | payer OTHER ==
[~2018-08-06] VITALS: Ht 157.5 cm; Wt 44.5 kg
[2018-08-06 23:10] VITALS: BP 129/77
--- NOTE | 2018-08-06 23:10 | NUR ---
PT AMBULATED TO BED 7 WITH VSS.
--- NOTE | 2018-08-06 23:10 | NUR ---
PT PRESENTS TO ED WITH LUQ ABD PAIN RADIATING TO LEFT LOWER BACK X1; C/O RECTAL BLEEDING X1 12 HRS. PT STATES SHARP ABD PAIN 7/10. BRIGHT RED BLOOD NOTED IN STOOL. PT DENIES COFFEE GROUND EMESIS. POSITIONED IN BED FOR COMFORT. VSS. ER MD AWARE. CONTINUE TO MONITOR.
[2018-08-06] MEDS ORDERED: INSULIN REGULAR, HUMAN 100 UNIT/ML VIAL IV ONE (23:20)
[2018-08-06] MEDS ORDERED: FAMOTIDINE 20 MG/2 ML VIAL IVP ONE (23:20)
[2018-08-06] MEDS ORDERED: NACL 0.9% 1,000 ML IV ONE (23:20)
--- NOTE | 2018-08-06 23:53 | NUR ---
Pt ripped and broke leads off monitor leaving them unusable. Pt angrily demanding morphine instead of recieving best practice medicine, labs, and immaging according to Dr. Friedman.
--- NOTE | 2018-08-06 23:53 | NUR ---
Patient does not wish to proceed with medical care recommended by Dr Friedman. Patient given information related to possible complications, up to and including , which could occur as a result of leaving hospital at this time. Patient verbalizes understanding of risks involved leaving against medical advice. Patient has signed AMA form.
[2018-08-07 00:02] LABS: BASOPHILS % (AUTO) 0.3 % (0.0-2.0); EOSINOPHILS # (AUTO) 0.1 K/uL (0-0.4); EOSINOPHILS % (AUTO) 0.8 % (0.0-4.0); HEMOGLOBIN 8.5 g/dL (12.0-16.0); MEAN CORPUSCULAR HEMOGLOBIN 20 pg (27-31); MEAN CORPUSCULAR HGB CONC 28 g/dL (33-37); MEAN CORPUSCULAR VOLUME 72.9 fL (80-94); MONOCYTES # (AUTO) 0.5 K/uL (0.8-1.0); MONOCYTES % (AUTO) 6.1 % (1.7-9.3); NEUTROPHILS # (AUTO) 5.8 K/uL (1.8-7.7); NEUTROPHILS % (AUTO) 68.8 % (42.2-75.2); PLATELET COUNT (AUTO) 721 K/uL (140-450); RED BLOOD CELL COUNT(AUTO) 4.24 MIL/uL (4.20-5.40); RED CELL DISTRIBUTION WIDTH 22.8 % (11.6-13.7); WHITE BLOOD COUNT (AUTO) 8.5 K/uL (4.8-10.8)
[2018-08-07 00:12] LABS: ALBUMIN 2.6 g/dL (3.4-5.0); ANION GAP 10.4 (8-16); CARBON DIOXIDE 27.1 mmol/L (21-32); POTASSIUM 4.5 mmol/L (3.5-5.1); TOTAL BILIRUBIN 0.1 mg/dL (0.0-1.0)
[2018-08-07 00:14] LABS: HEMATOCRIT 25.5 % (36-48)
== END 2018-08-06 23:53 | disposition left against medical advice (07) ==
LOC: MED 23:01
DX: K62.5 Hemorrhage of anus and rectum (principal); E11.65 Type 2 diabetes mellitus with hyperglycemia; I10 Essential (primary) hypertension; E05.90 Thyrotoxicosis, unspecified without thyrotoxic crisis or storm; Z88.0 Allergy status to penicillin; Z88.6 Allergy status to analgesic agent; Z91.040 Latex allergy status; Z79.899 Other long term (current) drug therapy
CPT/HCPCS: 36415; 80053; 82948; 85025; 96374; 99284; J1815; J3490